=== PATIENT | female | born 1945 | race Caucasian/White ===

== ENCOUNTER 2021-02-28 13:05 | Outpatient (CLI) | payer MEDICARE, SELFPAY ==
--- NOTE | ~2021-02-28 | CT_ITS ---
EXAMINATION:CT chest high resolution wo co DATE: 02/28/2021 16:23 INDICATION: Other disorders of lung. TECHNIQUE: Computed tomography (CT) of the chest was performed without intravenous contrast. Automate d exposure control and iterative reconstruction technique were employed. The dose-length product (DLP ) was 326.85 mGy-cm. COMPARISON: None. FINDINGS: There is multifocal subsegmental atelectasis bilaterally. There is mosaic attenuation in th e lungs, likely small airways disease. There is a 3 mm nodule in left upper lobe, likely benign. Ther e is mild scarring at left lung apex. There is mild emphysema. There is a 3 mm nodule in right upper lobe, likely benign. There is a staple line in right lower lobe. There are mild peripheral subsegment al airspace and groundglass opacities with septal thickening in right lower lobe. There is a staple l ine in right middle lobe. There is mild peripheral septal thickening in the lungs with a lower lung p redominance. No bronchiectasis or honeycombing. No pleural effusion. Cardiomegaly is noted. There are coronary artery calcifications. No pericardial effusion. There are changes of cholecystectomy. The c entral pulmonary arteries are enlarged, consistent with pulmonary arterial hypertension. There is sev ere thoracic spondylosis. There is a sclerotic lesion in T3 vertebral body, likely a benign bone brook nd. There is a chronic burst fracture of T12 with mild central canal stenosis. There is mild chronic anterior wedging of L1 vertebral body. IMPRESSION: 1. Mild emphysema and mild chronic interstitial lung disease. 2. Cardiomegaly. Reviewed, dictated and finalized at location A. /OCEAN EXPORT CLERK
--- NOTE | 2021-02-28 13:55 | ECHO_ITS ---
Patient Info Name: Yoselin Thakur Age: 75 years : 1945 Gender: Female Ht: 63 in Wt: 266 lbs BSA: 2.39 m2 HR: 133 bpm BP: 160 / 90 mmHg Heart Rhythm: Atrial Fibrillation Exam Date: 02/28/2021 3:08 PM Exam Location: [facility] Pulmonary Patient Status: Outpatient Admit Date: 02/28/2021 Staff Ordering Physician: Winston Desir MD [employer] Teacher: Beena Adhikari RDCS Attending Provider: Winston Desir MD Referring Physician: Thang JIN; Exam Type: CA echo doppler color flow Study Info Indications - Pulmonary Hypertension, unspecified Complete two-dimensional, color flow and Doppler transthoracic echocardiogram is performed. Summary 1. Complete two-dimensional, color flow and Doppler transthoracic echocardiogram is performed. 2. Left ventricular chamber dimension is normal. 3. Left ventricular systolic function is normal, estimated at 55-60%. 4. The left ventricular diastolic function is abnormal. 5. E/e' 17 is elevated. 6. Atrial fibrillation. 7. Left atrial chamber dimension is severely enlarged. 8. Right atrial chamber dimension is moderately enlarged. 9. There is trace aortic valve regurgitation. 10. There is mild mitral valve regurgitation. 11. There is mild tricuspid valve regurgitation. 12. Moderate pulmonary hypertension, estimated pulmonary arterial systolic pressure is 53 mmHg. 13. There is trivial pericardial effusion. Left Ventricle E/e' 17 is elevated. Atrial fibrillation. Left ventricular chamber dimension is normal. Left ventricular systolic function is normal, estimated at 55-60%. The left ventricular diastolic function is abnormal. Right Ventricle Right ventricular chamber dimension is normal. Right ventricular systolic function is normal. Left Atria Left atrial chamber dimension is severely enlarged. Right Atria Right atrial chamber dimension is moderately enlarged. Aortic Valve The aortic valve is trileaflet. There is no aortic valve stenosis. There is trace aortic valve regurgitation. Pulmonic Valve There is no pulmonic regurgitation. Mitral Valve There is no mitral valve stenosis. There is mild mitral valve regurgitation. Tricuspid Valve There is mild tricuspid valve regurgitation. Moderate pulmonary hypertension, estimated pulmonary arterial systolic pressure is 53 mmHg. Pericardium/Pleural There is trivial pericardial effusion. Inferior Vena Cava Normal inferior vena cava with >50% collapse upon inspiration consistent with normal right atrial pressure, 5 mmHg. Aorta The aortic root size at the sinus of Valsalva is normal. Left Ventricular Outflow Tract Name Value Normal LVOT 2D LVOT Diameter 1.8 cm LVOT Doppler LVOT Peak Gradient 2 mmHg LVOT Mean Gradient 1 mmHg LVOT VTI 13 cm LVOT VTI/AV VTI Ratio 0.6 LVOT Stroke Volume 34 ml LVOT CO 3.7 l/min LVOT CI 1.6 l/min/m2 Pulmonic Valve
[2021-02-28 14:22] LABS: Rheumatoid Factor < 8.6 IU/ML (<12)
--- NOTE | 2021-03-01 12:31 | WPDSIXMINUTE ---
Six Minute Walk Procedure Procedure Performed Pulmonary Stress Test (6 min walk) Six Minute Walk This is a 6 minute walk test. The test was performed and interpreted in accordance with the 2014 ERS/ATS task force guidelines. the testing was performed on 2 L nasal cannula oxygen which is her home setting. Findings: The patient's resting oxygen saturation on 2 L NC measured by pulse oximetry was 97% and her heart rate was 141 bpm. Patient ambulated for 167 meters and oxygen saturation remained 95 to 98%. Heart rate at the end of the study was 138 bpm. There are no prior studies for comparison.
--- NOTE | 2021-03-01 12:33 | WPDPFTINT ---
PFT Procedure Performed PFT Procedure Performed Spirometry with Pre/Post Bronchodilator Plethysmography (Lung Vol) Diffusing Cap (DLCO) Flow Vol Loop PFT Interpretation This is a pulmonary function test with pre and post-bronchodilator spirometry, plethysmography and diffusing capacity. The test was performed and results interpreted in accordance with the 2019 and 2005 ATS/ERS Task Force guidelines respectively using the Global Lung Function Initiative-2012 reference equations. Patient demonstrated good effort and cooperation. Reproducibility criteria were met. The quality of the pre bronchodilator spirometry maneuver was Grade A and post bronchodilator spirometry maneuver was Grade A. Findings: Spirometry: The contour the expiratory flow tracing resembles that of a witch's hat . The contour the inspiratory flow tracing is normal. The pre bronchodilator FVC is 1.49 L, 57% predicted. The pre bronchodilator FEV1 is 1.14 L, 56% predicted. The FEV1: FVC ratio 76%. The post bronchodilator FVC is 1.47 L, representing a 2% decrease. The post bronchodilator FEV1 is 1.18 L, representing a 3% increase. The post bronchodilator FEV1: FVC ratio was 80%. Plethysmography: The total lung capacity is 3.07 L, 63% predicted. The functional residual capacity is 1.75 L, 62% predicted. The residual volume is 1.57 L, 71% predicted. Diffusing capacity: The absolute diffusion capacity is 8.6, 44% predicted. The diffusing capacity corrected for alveolar volume is 3.86, 90% predicted. Impression: There is a moderately severe restrictive ventilatory abnormality. The spirometry is normal without evidence of an obstructive abnormality. There is no significant improvement after inhaling a single dose of albuterol. The absolute diffusing capacity is moderately decreased and normalizes when corrected for alveolar volume. There are no prior studies for comparison
[2021-03-02 21:19] LABS: ANA Cascade Screen Negative (Negative)
[2021-03-02 22:41] LABS: Anti Cyclic Citrullinated Pept <16 Units (<20)
[2021-03-03 10:15] LABS: ANCA Screen Negative (Negative)
== END 2021-02-28 13:06 | disposition home or self-care (01) ==
PROVIDERS: PCP Family Medicine; Visit Provider Internal Medicine Pulmonary Disease
DX: I27.20 Pulmonary hypertension, unspecified (principal); J98.4 Other disorders of lung; R06.00 Dyspnea, unspecified; J40 Bronchitis, not specified as acute or chronic; Z72.0 Tobacco use; J84.9 Interstitial pulmonary disease, unspecified; R94.2 Abnormal results of pulmonary function studies; J43.9 Emphysema, unspecified; I08.3 Combined rheumatic disorders of mitral, aortic and tricuspid valves
CPT/HCPCS: 36415; 71250; 86021; 86038; 86200; 86331; 86430; 86606; 86609; 93306; 94060; 94618; 94726; 94729

== ENCOUNTER 2023-05-14 14:01 | Outpatient (CLI) | payer MEDICARE, SELFPAY ==
--- NOTE | ~2023-05-14 | CT_ITS ---
EXAMINATION: CT chest high resolution wo co DATE: 05/14/2023 14:35 INDICATION: Emphysema, chronic interstitial lung disease TECHNIQUE: Computed tomography (CT) of the chest was performed without intravenous contrast. Automate d exposure control and iterative reconstruction technique were employed. Exam dose: 353.62 mGy-cm to joan exam DLP. COMPARISON: 02/28/2021 CT chest high resolution scan FINDINGS: There is chronic discoid atelectasis or more likely scarring in the medial left apical area and particularly in the lingula. There is chronic discoid scarring at the anterior segment of the ri ght upper lobe and to a lesser extent both lower lobes. Stable 3 mm smaller nodule in each upper lobe. There is new or enlarging pulmonary mass lesion or new pulmonary infiltrate or consolidation is detected. Cardiomegaly. Interval pacemaker device since 02/28/2021. No thoracic aortic aneurysm. There is thoracic aortic atherosclerotic calcification. No hilar or medi astinal mass lesion or lymphadenopathy. Status post cholecystectomy. No bile duct dilatation. Normal morphology of the adrenal glands. Chronic mild burst fracture of T12. Lower cervical spine degenerative disc disease. Degenerative spur ring of the thoracic and lumbar spine. Probable large bone island of T3 vertebral body. Bilateral glenohumeral osteoarthritis.. IMPRESSION: Interval placement of cardiac pacemaker device; otherwise little interval change since 04/30/2020 Reviewed, dictated and finalized at [facility]. Reviewed, dictated and finalized at location B. K WATCHMAN IMPRESSION: Interval placement of cardiac pacemaker device; otherwise little i nterval change since 02/28/2021
[2023-05-14 15:00] VITALS: PULSE 82; O2SAT 94
[2023-05-14 15:03] VITALS: O2SAT 87
[2023-05-14 15:04] VITALS: O2SAT 88
[2023-05-14 15:05] VITALS: PULSE 93; O2SAT 92
[2023-05-14 15:15] VITALS: PULSE 80; O2SAT 94
--- NOTE | 2023-05-14 16:17 | PCRCNOTE ---
HOME O2 EVAL FAXED TO OFFICE STAFF, ROOM AIR RESTING, 2 L ACTIVITY
--- NOTE | 2023-05-15 12:05 | WPDPFTINT ---
PFT Procedure Performed PFT Procedure Performed Spirometry with Pre/Post Bronchodilator Plethysmography (Lung Vol) Diffusing Cap (DLCO) Flow Vol Loop PFT Interpretation This is a pulmonary function test with pre and post-bronchodilator spirometry, plethysmography and diffusing capacity. The test was performed and results interpreted in accordance with the 2019 and 2005 ATS/ERS Task Force guidelines respectively using the Global Lung Function Initiative-2012 reference equations. Patient demonstrated good effort and cooperation. Reproducibility criteria were met. The quality of the pre bronchodilator spirometry maneuver was Grade A and post bronchodilator spirometry maneuver was Grade A. Findings: Spirometry: The contour the inspiratory and expiratory flow tracing are normal. The pre bronchodilator FVC is 1.39 L, 54% predicted. The pre bronchodilator FEV1 is 1.10 L, 56% predicted. The pre bronchodilator FEV1: FVC ratio 79%. The post bronchodilator FVC is 1.36 L, representing a 2% decrease. The post bronchodilator FEV1 is 1.22 L, representing an 11% increase. The post bronchodilator FEV1: FVC ratio is 90%. Plethysmography: The total lung capacity is 3.48 L, 71% predicted. The functional residual capacity is 2.31 L, 82% predicted. The residual volume is 2.06 L, 91% predicted. Diffusing capacity: The diffusing capacity unadjusted for hemoglobin and carboxyhemoglobin is 11.3, 58% predicted. The diffusing capacity adjusted for alveolar volume is 3.78, 89% predicted. In comparison to previous pulmonary function testing on 02/28/2021 the post bronchodilator FVC is unchanged from 1.47 L to 1.36 L. The post bronchodilator FEV1 is unchanged from 1.18 L to 1.22 L. The total lung capacity is increased from 3.07 L to 3.48 L. The functional residual capacity is increased from 1.75 L to 2.31 L. The residual volume is increased from 1.57 L to 2.06 L. The diffusing capacity unadjusted for hemoglobin and carboxyhemoglobin is increased from 8.6 to 11.3. The diffusing capacity adjusted for alveolar volume is unchanged from 3.86 to 3.78. Impression: There is a moderately severe restrictive ventilatory abnormality. The spirometry is normal without evidence of an obstructive abnormality. There is no significant improvement after inhaling a single dose of albuterol. The diffusing capacity unadjusted for hemoglobin and carboxyhemoglobin is moderately decreased and normalizes when adjusted for alveolar volume. In comparison to prior pulmonary function testing on 02/28/2021 there has been a greater than anticipated time dependent increase in the total lung capacity, functional residual capacity, residual volume and diffusing capacity unadjusted for hemoglobin and carboxyhemoglobin. There has been no significant change in the FVC, FEV1 or diffusing capacity adjusted for alveolar volume. Clinical correlation is recommended.
== END 2023-05-14 14:02 | disposition home or self-care (01) ==
LOC: ANHIMG 14:08
PROVIDERS: PCP Family Medicine; Visit Provider Physician Assistant
DX: J98.4 Other disorders of lung (principal); Z95.0 Presence of cardiac pacemaker
CPT/HCPCS: 71250; 94060; 94618; 94726; 94729

== ENCOUNTER 2025-02-10 13:20 | Outpatient (CLI) | payer MEDICARE, SELFPAY ==
--- OUTSIDE RECORDS SUMMARY | 2021-03-14 10:30 | XMS_ITS | Continuity of Care Document ---
Author Organization [employer] [place] [place] [facility] Address [address] [facility] [address] [place] [id number] Phone Care Team Providers Care Rate Quoting Operator Name Role Phone Luca Townsend MD Unavailable Unavailable Allergies, Adverse Reactions, Alerts Substance Reaction Status Criticality ramelteon Active No Information azithromycin Active No Information ofloxacin Active No Information lansoprazole Active No Information erythromycin base Active No Informa tion Sulfa (Sulfonamide Antibiotics) Active No Information PENICILLIN Active No Information SITAGLIPTIN PHOSPHATE Active No Inf ormation tetracycline Active No Information CIPROFLOXACIN HCL Active No Informa tion ciprofloxacin Active No Information clindamycin Active No Information Medications Medication Instructions Dosage Effective Dates (start - stop) Status Comments Dulcolax (bisacodyl) 5 mg tablet,delayed release take 2 tablet by oral route every day 10 MG - Active cyclobenzaprine 10 mg tablet take 1 tablet by oral route 3 times every day 10 MG - Active elqsuzgjcm-hsrbvdc-wna feine 50 mg-325 mg-40 mg tablet take 1 tablet by oral route every 4 hours as needed not to exceed 6 tablets per 24hrs 1.00 tablet - Active multivitamin tablet take 1 tablet by oral route every day 1 tablet - Active aripiprazole 2 mg tablet take 1 tablet by oral route every day 2 MG - Active albuterol sulfate concentrate 2.5 mg/0.5 mL solution for nebulization inhale 0.5 milliliter by nebulization route 3 times every day 2.5 MG - Active aspirin 81 mg tablet,delayed release take 1 tablet by oral route every day 81 MG - Active fluticasone propionate 50 mcg/actuation nasal spray,suspension inhale 1 spray by intranasal route every day in each nostril 50 MCG - Active Eliquis 5 mg tablet take 1 tablet by oral route 2 times every day 5 MG - Active metformin 500 mg tablet take 2 tablet by oral route every day with morning and evening meals 1000 MG - Active lorazepam 0.5 mg tablet take 2 tablet by oral route 3 times every day as needed 1 MG - Active Pedia-Lax 400 mg (170 mg magnesium) chewable tablet take one tablet daily - Active omega-3 fatty acids-fish oil 300 mg-1,000 mg capsule take one tablet daily - Active ondansetron HCl 4 mg tablet take 2 tablet by oral route 2 times every day 8 MG - Active oxygen INHALATION MIST take one tablet daily - Active Tylenol Extra Strength 500 mg tablet take 2 tablet by oral route every 4 - 6 hours as needed not to exceed 8 tablets per 24hrs 1000 MG - Active Ambien 5 mg tablet take 1 tablet by oral route every day at bedtime 5 MG - Active Aldactone 50 mg tablet take 1 tablet by oral route every day 50 MG - Active diltiazem ER 360 mg capsule,24 hr,extended release take 1 capsule by oral route every day 360 MG - Active Caltrate with Vitamin D3 600 mg (1,500 mg)-800 unit tablet take 1 by oral route every day 1 - Active fexofenadine 180 mg tablet take 1 tablet by oral route every day 180 MG - Active Senokot-S 8.6 mg-50 mg tablet take 2 tablet by oral route every day 2.00 tablet - Active Singulair 10 mg tablet take 1 tablet by oral route every day in the evening 10 MG - Active Revatio 20 mg tablet take 1 tablet by oral route 3 times every day 20 MG - Active Protonix 40 mg tablet,delayed release take 1 tablet by oral route every day 40 MG - Active nortriptyline 50 mg capsule take 1 capsule by oral route 2 times every day 50 MG - Active Lasix 20 mg tablet take 1 tablet by oral route every day 20 MG - Active Crestor 10 mg tablet take 1 tablet by oral route every day 10 MG - Active clonidine HCl 0.2 mg tablet take 1 tablet by oral route 2 times every day 0.2 MG - Active atenolol 50 mg tablet take 1 tablet by oral route every day 50 MG - Active valsartan 320 mg tablet take 1 tablet by oral route every day 320 MG - Active ProAir RespiClick 90 mcg/actuation breath activated inhale 2 puff by inhalation route every 4 - 6 hours as needed 180 MCG - Active Advair Diskus 250 mcg-50 mcg/dose powder for inhalation inhale 1 puff by inhalation route 2 times every day in the morning and evening approximately 12 hours apart 1.00 puff - Active Procedures Procedure Date Post-op Follow-up Visit No Charge Optomap Fundus Photos 021 No Charge Refraction After Cataract Laser Surgery Eye Exam & Treatment No Charge Refraction No Charge Optomap Fundus Photos 020 Eye Exam & Treatment No Charge Refraction Eye Exam & Treatment Eye Exam & Treatment Office/outpatient Visit, Est No Charge Refraction Post-op Follow-up Visit Post-op Follow-up Visit Remove Cataract, Insert Lens Remove Cataract, Insert Lens,Comanaged N IOLMaster-Professional No Charge Refraction Post-op Follow-up Visit Post-op Follow-up Visit Remove Cataract, Post Op Care 6 Remove Cataract, Insert Lens,Comanaged S Limbal Relaxing Incision IOLMaster-Professional Corneal Topography IOLMaster-Technical No Charge Refraction No Charge AScan No Charge GDX Retina IOLMaster-Technical Eye Exam, New Patient Advance Directives Directive Yes / No Effective Date File Name No Information Encounters Encounter Description Practice Location Reason(s) For Visit Diagnoses Date Provider Providers Copied on Encounter [facility], [address], [place], [place], [address], [place] tel:[phone] SEC Pancho DUARTE Professional YAG Post Op (chief complaint) Surgery follow-up examination 1 Kristian Segovia. [address], [place], [place], [address], . tel:[phone] Referring Provider: Luca Servin, [address], [place], [address] . tel:[phone] [facility], [address], [place], [place], [address], [place] tel:[phone] [place] Professional Complete Exam (chief complaint) Type 2 diabetes mellitus without complication sPseudophaki a of both eyesDry eye syndrome of bilateral lacrimal glandsOther secondary cataract, right eyeOther secondary cataract, left eye 1 Kristian Segovia. [address], [place], [place], [address], [place]. tel:[phone] Referring Provider: Luca Servin, [address], [place], [address] . tel:[phone] [facility], [address], [place], [place], [address], [place] tel:[phone] [place] Complete Exam (chief complaint) Type 2 diabetes mellitus without complication sPseudophaki a of both eyesOther secondary cataract, bilateral 0 Kristian Segovia. [address] [place], [address], [place]. tel:[phone] Referring Provider: Luca Servin, [address], [place], [address] . tel:[phone] [facility], [address], [place], [place], [address], [place] tel:[phone] [place] Diabetic eye exam (chief complaint) Pseudophakia of both eyesOther secondary cataract, bilateralTyp e 2 diabetes mellitus without complication s 9 Kristian Segovia. [address], [place], [place], [address], [place]. tel:[phone] Referring Provider: Luca Servin, [address] [facility] [address], [place], [address] . tel:[phone] [facility], [address] [place] [address] [address], [place], [place], [address], [place] tel:[phone] SEC Pancho DUARTE Professional No Information Nov- 9 Kristian Segovia. [address] [facility], [place], [place], [address], [place]. tel:[phone] [facility], [address] [place] [address] [address], [place], [place], [address], [place] tel:[phone] SEC Pancho DUARTE Professional diabetic eye exam (chief complaint) Pseudophakia of both eyesType 2 diabetes mellitus without complication , without long-term current use of insulinOther secondary cataract, bilateral 8 Kristian Segovia. [address] [facility], [address], [place], [place], [address], [place]. tel:[phone] Referring Provider: Luca Servin, [address] [facility] [address], [place], [address] . tel:[phone] Office/outpa tient Visit, [facility], [address] [place] [address] [address], [place], [place], [address], [place] tel:[phone] SEC Pancho DUARTE Professional Follow up visit (chief complaint) Type 2 diabetes mellitus without complication , without long-term current use of insulinPseud ophakia of both eyesOther secondary cataract, bilateral Jul- 7 Kristian Segovia. [address] [facility], [address], [place], [place], [address], [place]. tel:[phone] Referring Provider: Luca Servin, [address] [facility] [address], [place], [address] . tel:[phone] [facility], [address] [place] [address] [address], [place], [place], [address], [place] tel:[phone] [place] 1 month follow up (chief complaint) No Information Mar- 6-201 6 Kristian Segovia. [address], [place], [place], [address], [place]. tel:[phone] Referring Provider: Luca Servin, [address], [place], [address] . tel:[phone] [facility], [address] [place] [address] [address], [place], [place], [address], [place] tel:[phone] [place] 1 wk PO (chief complaint) No Information 6 Kristian Segovia. [address], [address], [address], [place]. tel:[phone] Referring Provider: Luca Servin, [address], [place], [address] . tel:[phone] [facility], [address] [place] [address] [address], [place], [place], [address], [place] tel:[phone] [place] 1 day PO (chief complaint) No Information 6 Kristian Segovia. [address], [place], [place], [address], [place]. tel:[phone] Referring Provider: Luca Servin, [address], [place], [address] . tel:[phone] [facility], [address] [place] [address] [address], [place], [place], [address], [place] tel:[phone] [facility] No Information 0 6 Kristian Segovia. [address], [place], [place], [address], . tel:[phone] Referring Provider: Luca Servin, [address] [facility] [address], [place], [address] . tel:[phone] [facility], [address], [place], [place], [address], tel:[phone] [facility] No Information Nov-0 7-201 6 Kristian Segovia. [address] [facility], [address], [address], . tel:[phone] Referring Provider: Luca Servin, [address] [facility] [address], [place], [address] . tel:[phone] [facility], [address] [place] [address] [address], [place], [place], [address], tel:[phone] [place] Post-Op (chief complaint) No Information Oct-2 8-201 6 Kristian Segovia. [address] [facility], [facility] [place], [address], . tel:[phone] Referring Provider: Luca Servin, [address] [facility] [place], [address] . tel:[phone] [facility], [address], [place], [place], [address], tel:[phone] [place] Post-Op (chief complaint) No Information Oct-0 4-201 6 Kristian Segovia. [address] [facility], [facility] [place], [address], . tel:[phone] Referring Provider: Luca Servin, [address] [facility] [place], [address] . tel:[phone] [facility], [address], [place], [place], [address], [place] tel:[phone] SEC Pancho GERALD Professional Post-Op (chief complaint) No Information 6 Kristian Segovia. [address], [place], [place], [address], [place]. tel:[phone] Referring Provider: Luca Servin, [address], [place], [address] . tel:[phone] [facility], [address], [place], [place], [address], [place] tel:[phone] [facility] No Information 6 Kristian Segovia. [address], [address], [address], [place]. tel:[phone] Referring Provider: Luca Servin, [address], [place], [address] . tel:[phone] [facility], [address], [place], [place], [address], [place] tel:[phone] SEC Renetta Erazo No Information 6 Kristian Segovia. [address], [address], [address], [place]. tel:[phone] Referring Provider: Luca Servin, [address], [place], [address] . tel:[phone] [facility], [address], [place], [place], [address], [place] tel:[phone] SEC Renetta Erazo Repeat Measurements (chief complaint) No Information 6 Kristian Segovia. [address], [address], [address], [place]. tel:[phone] Referring Provider: Luca Servin [address], [place], [address] . tel:[phone] [facility] [facility], [address], [place], [place], [address], tel:[phone] [place] Professional Blurry/decrea sed vision (chief complaint) No Information 6 Kristian Segovia. [address], [place], [place], [address], [place]. tel:[phone] Referring Provider: Luca Servin, [address], [place], [address] . tel:[phone] [employer] [facility], [address], [place], [place], [address], tel:[phone] [place] No Information 6 Fly Vogel. [address], [place], [place], [address], . tel:[phone] Family History Family Member Type Diagnosis Age At Onset Problem (finding) Family history of Diabe russ mellitus Payers Payer name Insurance type Covered libertarian ID Authoriza tion(s) No Information Social History Type Description Quantity Date Captured Comments Alcohol Use Details 1 drink rarely Caffeine Use Details and soda 2 cups per day Tobacco Use Status Current non-smoker Smoking Status Never smoker Non-Smoking Tobacco Use Details : No Details Available : No Details Available Sex Female Gender Identity Female Chief Complaint And Reason For Visit From encounter dated '03/14/2021 15:30'. YAG Post Op (chief complaint). Description: The 75 year old female presents for evaluation of YAG Post Op in the right eye 02/16/21. Pt states vision is good. Pt is using Refresh BID OU. Pt denies pain or discomfort. Pt is NIDDM II with A1C 7.2 and BS 118, followed by PCP. Reason For Referral Reason For Referral No Information Plan Of Treatment Date Type Action Status Patient Education Learning About YAG Lase r Capsulotomy completed Patient Education Learning About YAG Lase r Capsulotomy completed History Of Present Illness Encounter Date Complaint History Of Prese nt Illness YAG Post Op The 75 year old female presents for evaluation of YAG Post Op in the right eye 02/16/21. Pt states vision is good. Pt is using Refresh BID OU. Pt denies pain or discomfort. Pt is NIDDM II with A1C 7.2 and BS 118, followed by PCP. Complete Exam The 75 year old female presents for evaluation of Complete Exam in the right eye and left eye. Hx of PCIOL w/LRI OD, PCIOL OS, PCO OU, and K guttata OD. Pt reports decline in vision has become more apparent from last appt. Pt is struggling to see TV captions/images, difficult to see small print or read the backs of medicine bottles, pt does avoid driving at night, and is worried of missing a street sign before making a turn. Pt is NIDDM II, with an A1C OF 7.3 and BS 129, followed by PCP. Pt is not using any gtts at this time. Complete Exam The 74 year old female presents for evaluation of Complete Exam in the right eye and left eye. Hx of PCIOL w/LRI OD, PCIOL OS, PCO OU, and K guttata OD. Pt is NIDDM II x 12 yrs, followed by PCP, pt reports BS was 116 last week and A1C was 6.5 in September. Pt reports she is having trouble reading small print up close, OU, even when wearing gls, x 6 mos. Pt reports she doesn't use any gtts, OU. Diabetic eye exam The 73 year ol d female presents for evaluation of Diabetic eye exam in the right eye and left eye. Hx of PCIOL OU w/LRI OD. Patient is a Type 2 diab x 10 years, NOT on Insulin, BS checked a couple of days ago @ 105, a1c 6.5, and PCP treats her diab. Patient states she has some difficulty driving at night due to glare. diabetic eye exam The 72 year ol d female presents for a complete Type II diabetic eye exam ou. Patient is pseudo ou. Last A1C was 5.9 a month ago. Patient denies any changes in vision ou. Follow up visit The 71 year old female presents for a 4 month IOL ou check. Patient wears OTC reading glasses. Patient denies any changes in vision ou. Patient is a Type II diabetic. Patient is taking Prednisone for Bronchitis. 1 month follow up The 70 year ol d female presents for 1 month follow up in the left eye. Hx Phaco w/PCIOL Os & PCIOL w/LRI OD, Guttata OD, DMII NID. PT states her vision is doing fine but she has noticed that her left eye is watery and achy last night and today. Pt states she is using POLY TID OS. 1 wk PO The 70 year old female presents for 1 wk PO in the left eye. Pt using Poly, PF1%, and Diclo TID. Pt states VA is good, no pain or discomfort. 1 day PO The 70 year old female presents for 1 day PO in the left eye. All medications reviewed and PO instructions understood. Pt used all Sx gtts this AM. Pt states VA has improved and had a slight GIL last night, Pt took Tylenol to help GIL. Post-Op The 70 year old female presents for a 1 month post op CE OD with LRI. Patient states OD is doing good. Patient is using Poly only OD. Patient wishes to proceed with CE OS because of decreased vision and notices a difference between eyes. Post-Op The 70 year old female presents for a 1 week p/o PCIOL c LRI OD. Pt states v/a OD has improved. Pt denies any pain or discomfort. Pt is using Poly QID, Pred QID, and Diclo TID OD, gtts burn. Post-Op The 70 year old female presents for a 1 day post op CE with LRI OD. Patient is using Pred, Poly and Diclofenac as directed. Patient denies any pain or discomfort. Repeat Measurements The 70 year old female presents for Repeat Measurements. IOLM, A-Scan, and Pentscam will be completed today. Blurry/decreased vision The 70 y ear old female presents for Blurry/decreased vision OU over the past 6 months in the distance, avoids driving at night, trouble reading roadsigns, small print, and is bothered by glare from bright lights. Pt denies any pain or discomfort. Pt does not use any gtts. Pt is NIDDII. A1C 6.4, checked BS last week 85. Functional Status Date Functional Assessmen t No Information Instructions Date Instruction Additional Infor sharla Impression/Plan Impression/Plan Impression/Plan Impression/Plan Educational material given Relat ed to Pseudophakia of both eyes Impression/Plan Impression/Plan - Ty pe II Diabetes:- No background diabetic retinopathy and no signs of neovascularization noted.- Ocular and systemic benefits of good blood sugar control discussed with patient.- Letter sent to Maurilio Torrez MD regarding today's exam findings.Posterior Capsular Opacification OU:- Mild PCO OU; has not reached visual axis.- PCO does not appear to be affecting the vision.- Patient will monitor the vision and call with changes.- Recommend patient return in 1 year or sooner with problems. Type 2 diabetes sharon itus without complication, without long-term current use of insulin - Letter sent to PCP/Specialist Related to Type 2 diabetes mellitus without complication, without long-term current use of insulin Type 2 diabetes sharon itus without complication, without long-term current use of insulin - Educational materials provided Related to Type 2 diabetes mellitus without complication, without long-term current use of insulin Type 2 diabetes sharon itus without complication, without long-term current use of insulin - Rec good blood sugar control Related to Type 2 diabetes mellitus without complication, without long-term current use of insulin Follow up - Return t o clinic in 1 year for complete exam Impression/Plan - 1 month s/p Phaco IOL OS. Patient has healed well. All post operative medications are finished. Vision is good and IOP is stable. Recommend the use of AFT as needed for dryness and irritation. Sample of Refresh Advanced given today. Recommend the use of OTC reading glasses for near vision. Patient will return in 4 months or sooner with problems. Follow up - Return t o clinic in 4 months for DFE Follow up - Return t o clinic as scheduled Impression/Plan - On e week PO s/p Phaco with IOL OS. IOL in good position; healing well. Patient advised they no longer need to wear the shield over the eye at bedtime. Medication instillation and post op instructions reviewed. Patient will return in 3 weeks or sooner with problems. Impression/Plan - On e Day PO s/p Phaco with IOL OS in good position. Patient healing well. Medication instillation, shield use and restrictions reviewed with patient. Return to clinic as scheduled or sooner with problems. Follow up - Return t o clinic as scheduled Impression/Plan - 1 month s/p Phaco IOL OD. Patient has healed well. All post operative medications are finished. Vision is good and IOP is stable. Patient elects to proceed with OS CE as scheduled. Follow up - Proceed with OS CE as scheduled Impression/Plan - On e week PO s/p PCIOL with LRI OD. IOL in good position; healing well. Patient advised they no longer need to wear the shield over the eye at bedtime. Advised patient to wait 2 weeks before wearing mascara. Medication instillation and post op instructions reviewed. Patient will return in 3 weeks or sooner with problems. Follow up - Return t o clinic as scheduled Impression/Plan - On e Day Post Op s/p Phaco with IOL+LRI OD in good position. Patient healing well. Medication instillation, shield use and restrictions reviewed with patient. Return to clinic as scheduled or sooner with problems. Follow up - Return t o clinic as scheduled Impression/Plan - Ca taract surgery measurements reviewed with patient. Lifestyle lens options discussed. After reviewing the measurements the right eye would benefit from the LRI, and the left would not. Patient elects to schedule CE OD first with the standard IOL+LRI, followed by OS CE with the standard IOL. Follow up - Schedule CE OD first with the standard IOL+LRI, followed by OS CE with the standard IOL. Follow up - Schedule IOL Master, ASCAN and Pentacam in [facility] Impression/Plan - Ty pe II Diabetes: No background diabetic retinopathy and no signs of neovascularization noted. Ocular and systemic benefits of good blood sugar control discussed with patient. Letter sent to Maurilio Torrez MD regarding today's exam findings.Cataract Diagnosis discussed in detail with patient. Discussed all risks, benefits and alternatives pertaining to cataract surgery. The procedure and recovery from cataract extraction were discussed. Recommend phacoemulsification with intraocular lens implant. Lifestyle lens options discussed. Toric IOL vs. LRI discussed with patient. The possibility that patient may still need to wear glasses to correct residual astigmatism and/or for reading vision following surgery reviewed and understood by patient. Patient elects to proceed with CE OD+ possible LRI with the standard IOL set for distance, followed by CE OS with the standard IOL+ possible LRI set for distance.*Patient will schedule repeat measurements in [facility] for IOL Master, ASCAN and Pentacam. Assessments Type Assessment Date assessment Surgery follow-up examination No Patient Care Teams Name Effective Dates (start - stop) Status Members No Information
[2025-02-10 13:05] VITALS: PULSE 60; O2SAT 95
[2025-02-10 13:10] VITALS: PULSE 80; O2SAT 86
[2025-02-10 13:15] VITALS: PULSE 84; O2SAT 88
[2025-02-10 13:20] VITALS: PULSE 88; O2SAT 91
[2025-02-10 13:35] VITALS: PULSE 66; O2SAT 94
--- NOTE | 2025-02-10 14:39 | HOMEO2EVAL ---
Evaluation was performed at [facility] Home Oxygen Evaluation RC: Home Oxygen (O2) Evaluation Start: 02/10/25 14:36 Freq: Status: Active Protocol: RPE Activity Type Activity Date Activity User E-sign Co-sign Detail Recorded Client Recorded Date Recorded By Document 02/10/25 13:05 DJO [email or web address] 02/10/25 14:39 DJO Document 02/10/25 13:10 DJO [email or web address] 02/10/25 14:39 DJO Document 02/10/25 13:15 DJO [email or web address] 02/10/25 14:39 DJO Document 02/10/25 13:20 DJO [email or web address] 02/10/25 14:39 DJO Document 02/10/25 13:35 DJO [email or web address] 02/10/25 14:39 DJO 02/10/25 02/10/25 02/10/25 13:05 13:10 13:15 Home O2 Evaluation [Oxygen] -Test Phase Resting Exercise Exercise -Oxygen Delivery Room Air Room Air Nasal Cannula -Oxygen Flow Rate (L/min) 1 [Pulse Oximetry] -Pulse Oximetry (90-100 %) 95 86 L 88 L [Pulse Rate] -Pulse Rate (60-100 beats/min) 60 80 84 [Evaluation] -Activity Tolerance [Exercise] -Ambulation Distance (feet) -Ambulation Distance (meters) [Charges] -Evaluation Charges O2 Evaluation by Pulmonary 02/10/25 02/10/25 13:20 13:35 Home O2 Evaluation [Oxygen] -Test Phase Exercise Resting -Oxygen Delivery Nasal Cannula Room Air -Oxygen Flow Rate (L/min) 2 [Pulse Oximetry] -Pulse Oximetry (90-100 %) 91 94 [Pulse Rate] -Pulse Rate (60-100 beats/min) 88 66 [Evaluation] -Activity Tolerance Poor [Exercise] -Ambulation Distance (feet) 200 -Ambulation Distance (meters) 60.95 [Charges] -Evaluation Charges
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
--- OUTSIDE RECORDS SUMMARY | 2025-02-10 14:47 | XMS_ITS | Encounter Summary ---
Author Organization [facility] Healthcare Address [address] [place] [address] Care Team Providers Care Stock Fitter Name Role Phone Maurilio Torrez MD Primary Care Provider [phone] Renny Gabriel DO Unavailable [phone] Leticia Thorpe NURSERY RN Unavailable [phone] Richa Desir NURSERY RN Unavailable [phone] Nunu Langston NURSERY RN Unavailable [phone] Reason for Visit * Reason Onset Date Comments Symptom Based Call 10/14/2024 Encounter Details Date Type Department Care Team (Late Contact Info) Description 10/14/2024 Telephone [facility] [address] [address] Maurilio Torrez MD [address] [place] [address] Symptom Based Call Social History Tobacco Use Types Packs/Day Years [...] materials from doctor or pharmacy Sometimes 02/07/2024 [facility] Utilities Answer Date Recorded In the past 12 months has th e [employer], [employer], oil, or water [employer] threatened to shut off services in your [...] often do you attend chur ch or baptism services? Never 12/17/2023 Do you belong to any clubs o r organizations such as orthodoxy groups, unions, fraternal or athletic groups, or [...] points, staff should administer the PHQ-9) 0 09/03/2024 [facility] - Occupational Stress Questionnaire Answer Date [...] place to sleep or slept in a detention (including now)? No 05/16/2023 PHQ-9 Answer Date [...] any time in the past 12 m onths, were you homeless or living in a detention (including now)? No 12/17/2023 Personal Safety Answer Date Recorded Have you ever been in or are you currently in a harmful physical or emotional relationship or is someone making you feel afraid or unsafe? 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 Thanks * Telephone Encounter - Emi Talley - 10/14/2024 3:13 PM CDT Symptom Based Call Chief Complaint(s): urine odor and leakage Duration: about 5 days What type of symptom(s) is the patient experiencing? Non-Emergent. Is this a new or reoccurring symptom(s)? New What have you tried to help your symptom(s)? Incontinence pads Why was appointment not scheduled? Patient seeking care without an appointment; appointment was offered by [facility]. Additional Comments: Renea called requesting urinalysis order to be placed for patient. PERSONAL LINES ACCOUNT MANAGER did attempt to schedule but Renea states due to patient being homebound it is difficult for patient to get out for an appointment. Renea states patient would prefer for a urinalysis order to be placed andAmanda can drop off urine at lab in office but is agreeable to be seen for a video visit if she hasto. Renea states patient has been complaining of urine odor and increased urine leakage. Renea states patient denies any pain or burning at this time, no blood in urine or any other urinary changes. Please advise with Renea by phone. Does message need to be routed? Yes-Action Needed documented in this encounter Plan of Treatment Not on file documented as of this encounter Visit Diagnoses Not on filedocumented in this encounter Care Teams Stock Fitter Relationship Specialty Start Date End Date Maurilio Torrez MD [address] [place] [address] PCP - General 07/13/16 Renny Gabriel DO [address] [facility] [address] [place] [address] Consulting Physician Cardiovascular Disease 02/22/19 Leticia Thorpe NP [address] [place] [address] Nurse Practitioner Family Medicine 09/04/24 Richa Desir NP [address] [facility] [address] [facility] [address] [place] [address] Nurse Practitioner Hospice and Palliative Medicine 09/08/24 Nunu Langston NP [address] [facility] [address] [place] [address] Nurse Practitioner Hospice and Palliative Medicine 09/08/24 documented as of this encounter
--- OUTSIDE RECORDS SUMMARY | 2025-02-10 14:47 | XMS_ITS | Clinical Summary ---
Author Organization [facility] Address [address] [place] [address] Phone Care Team Providers Care Sand Caster Apprentice Name Role Phone Maurilio Torrez MD Primary Care Provider [phone] Medications No known medications Social History Tobacco Use Types Packs/Day Years Used Date Smoking Tobacco: Never Tobacco Cessation:Counseling Given: Not Answered Alcohol Use Standard Drinks/Week Comments Not Currently 0 (1 standard drink = 0.6 oz pur e alcohol) Comments No Sex and Gender Information Value Date Recorded Sex Assigned at Not on file Legal Sex Female 1:39 PM MORTGAGE LOAN COUNSELOR Gender Identity Not on file Sexual Orientation Not on file Last Filed Vital Signs Vital Sign Reading Time Taken Comments Blood Pressure 109/60 06/05/2023 4:07 PM MORTGAGE LOAN COUNSELOR Pulse 59 06/05/2023 4:07 PM MORTGAGE LOAN COUNSELOR Temperature 36.2 C (97.2 F) 06/05/2023 2:12 PM MORTGAGE LOAN COUNSELOR Respiratory Rate 18 06/05/2023 4:07 PM MORTGAGE LOAN COUNSELOR Oxygen Saturation 99% 06/05/2023 4:07 PM MORTGAGE LOAN COUNSELOR Inhaled Oxygen Concentration - - Weight 112 kg (247 lb) 06/05/2023 2:12 PM MORTGAGE LOAN COUNSELOR Height 160 cm (5' 3) 06/05/2023 2:12 PM MORTGAGE LOAN COUNSELOR Body Mass Index 43.75 06/05/2023 2:12 PM MORTGAGE LOAN COUNSELOR Plan of Treatment Health Maintenance Due Date Last Done Comments Hepatitis C Virus (HCV) Screening 1945 TdaP Immunization 1945 Zoster Immunization (1 of 2) 1996 DEXA Bone Density 02/09/2021 02/09/2019, 11/11/2014 Respiratory Syncytial Virus (RSV) Immunization (Adult) (1 - 1-dose 75+ series) 2021 Medicare Initial AWV G0438 04/15/2024 Influenza Immunization (#1) 12/14/202401/14, 12/21/2021, 03/02/2021, Additional history exists SARS-COV-2 Immunization ( season) 2024 08/29/2021, 05/12/2021, 03/12/2021, Additional history exists Pneumococcal Immunization (50+ years) Completed 03/13/2016, 09/14/2011 Hepatitis B Immunization Aged Out No longer eligible based on patient's age to complete this topic Human Papillomavirus (HPV) Immunization Aged Out No longer eligible based on patient's age to complete this topic Meningococcal Immunization (ACWY) Aged Out No longer eligible based on patient's age to complete this topic Rotavirus Immunization Aged Out No lo nger eligible based on patient's age to complete this topic Insurance MEDICARE C [facility] [place] [id number] Care Teams Sand Caster Apprentice Relationship Specialty Start Date End Date Maurilio Torrez MD [address] [place] [address] PCP - General Internal Medicine 06/05/23
--- OUTSIDE RECORDS SUMMARY | 2025-02-10 14:47 | XMS_ITS | Clinical Summary ---
Author Organization [facility] Facility Address [address] [place] [address] Care Team Providers Care Dependency Program Director Name Role Phone Maurilio Torrez Primary Care Provider [phone] Social History Tobacco Use Types Packs/Day Years Used Date Smoking Tobacco: Never Assessed Comments Unknown Sex and Gender Information Value Date Recorded Sex Assigned at Not on file Legal Sex Female 6:10 PM EDT Gender Identity Not on file Sexual Orientation Not on file Plan of Treatment Health Maintenance Due Date Last Done Comments Diabetes: Ophthalmology Exam 08/14/2024 Diabetes: Pedal Pulse Checked 08/14/2024 Diabetes: Sensory Foot Exam 08/14/2024 Diabetes: Visual Foot Exam 08/14/2024 Diabetes: Hemoglobin A1C 12/04/2024 09/03/2024, 0309/2024 Influenza Vaccine (#1) 2024 4, 12/23/2018, 12/30/2017, Additional history exists Pneumococcal Vaccine: 50+ Years Completed 03/13/2016, 09/14/2011 Pneumococcal Vaccine: Peds (0 to 5 Years) and At-Risk Patients (6 to 49 Years) Discontinued 03/13/2016, 09/14/2011 Colorectal Cancer Screening: Colonoscopy Discontinued 08/31/2020 Hepatitis B Vaccine Aged Out No longe r eligible based on patient's age to complete this topic Insurance [id number] [place] [address] [facility] Medicare Care Teams Dependency Program Director Relationship Specialty Start Date End Date Maurilio Torrez [address] [place] [address] PCP - General Internal Medicine 08/14/24
--- OUTSIDE RECORDS SUMMARY | 2025-02-10 14:47 | XMS_ITS | Clinical Summary ---
Author Organization [facility] Address [address] [place] [address] Care Team Providers Care Retail Merchandiser Technician Name Role Phone Maurilio Torrez MD Primary Care Provider [phone] Renny Gabriel DO Unavailable [phone] Leticia Thorpe SPECIAL EDUCATION ASSOCIATE Unavailable [phone] Richa Desir SPECIAL EDUCATION ASSOCIATE Unavailable [phone] Nunu Langston SPECIAL EDUCATION ASSOCIATE Unavailable [phone] Allergies Active Allergy Reactions Criticality Noted Date Comments Azithromycin Nausea & Vomiting,Nausea And Vomiting Low 04/23/2018 Ciprofloxacin Rash Medium Clindamycin Other (See comments) Low 01/30/2024 intolerance Erythromycin Hives Medium Lansoprazole Rash Medium Ofloxacin Rash Medium Other Rash Medium 12/21/2021 Penicillin Anaphylaxis High Ramelteon Nausea only,Stomach upset Low 10/20/2019 And stomach cramps Sitagliptin Nausea only Low Sulfa (Sulfonamide Antibiotics) Rash Medium Tetracycline Rash Medium Medications albuterol HFA (PROAIR HFA) 90 mcg/actuation inhalerIndicati ons:Bronchospas m Prevention,Intermediate Card Tender gil Obstructive Pulmonary Disease Inhale 2 puffs every 4 (four) hours as needed for wheezing or shortness of breath. 8.5 g 6 08/25/19 18 Active aspirin 81 mg tabletIndicatio ns:prevention of thrombosis Take 1 tablet (81 mg total) by mouth every other day Active nortriptyline (PAMELOR) 50 mg capsuleIndicati ons:depression Take 2 capsules (100 mg total) by mouth nightly Active omega-3 fatty acids-fish oil 300-1,000 mg capsuleIndicati ons:hypertrigly ceridemia Take 2 capsules (2 g total) by mouth 2 (two) times a day Active acetaminophen (TYLENOL) 500 mg tabletIndicatio ns:Pain Take 2 tablets (1,000 mg total) by mouth every 6 (six) hours as needed for pain Active oxygenIndicatio ns:Dyspnea Inhale 2 L/min continuously. Indications: trouble breathing Active multivitamin tabletIndicatio ns:Vitamin Deficiency Prevention Take 1 tablet by mouth daily Active calcium carbonate-vitam in D3 (Caltrate with Vitamin D3) 1,500 mg (600mg elemental) -800 unit per tabletIndicatio ns:Vitamin D Deficiency Take 1 tablet by mouth daily Active nebulizer accessories kit Use as directed with nebulizer Dx: pulmonary hypertension 1 kit 3 10/31/19 22 Active dicyclomine (BENTYL) 10 mg capsuleIndicati ons:Irritable Bowel Syndrome TAKE ONE (1) CAPSULE (10 MG TOTAL) BY MOUTH FOUR (4) TIMES a DAY BEFORE MEALS AND NIGHTLY 360 capsule 1 06/24/19 24 Active lubiprostone (AMITIZA) 8 mcg capsuleIndicati ons:chronic idiopathic constipation Take 1 pill twice daily with food or 2 pills once daily with food for constipation management. 180 capsule 3 02/28/20 24 Active senna-docusate (PERICOLACE) 8.6-50 mg Take 1-2 tablets by mouth daily as needed for constipation Active simethicone (GAS-X) 125 mg capsule Take 1 capsule (125 mg total) by mouth every 6 (six) hours as needed for flatulence Active famotidine (PEPCID) 40 mg tabletIndicatio ns:Heartburn Take 1 tablet (40 mg total) by mouth daily 30 tablet 11 03/06/20 24 2024 Active TRUEplus Pen Needle 31 gauge x 08/28 needle USE TO INJECT ONCE NIGHTLY 100 each 11 03/31/20 24 Active rimegepant (Nurtec ODT) tablet,disinteg rating Take 1 tablet (75mg) no more than once daily for headache 15 tablet 05/18/19 25 Active Additional Information Patient not taking.Reported on 11/05/2024 furosemide (LASIX) 20 mg tablet TAKE TWO (2) TABLETS BY MOUTH TWICE DAILY 360 tablet 2 06/27/19 25 Active SUMAtriptan (IMITREX) 50 mg tabletIndicatio ns:Migraine Take 1 tablet (50 mg total) by mouth once as needed for migraine May repeat after 2 hours. 27 tablet 4 07/02/19 25 2025 Active PARoxetine (PAXIL) 30 mg tablet 04/16/[address] (PROTONIX) 40 mg EC tabletIndicatio ns:Stress Ulcer Prophylaxis TAKE ONE (1) TABLET BY MOUTH TWO (2) TIMES a DAY BEFORE BREAKFAST AND DINNER 180 tablet 1 08/11/19 25 Active cetirizine (ZyrTEC) 10 mg tablet Take 0.5 tablets (5 mg total) by mouth daily as needed for allergies 90 tablet 1 08/14/19 25 2025 Active montelukast (SINGULAIR) 10 mg tabletIndicatio ns:Maintenance Therapy for Asthma TAKE ONE (1) TABLET (10 MG TOTAL) BY MOUTH NIGHTLY 100 tablet 1 08/18/19 25 Active albuterol 2.5 mg /3 mL (0.083 %) nebulizer solution USE 1 VIAL (2.5 MG TOTAL) BY NEBULIZATION FOUR (4) (FOUR) TIMES a DAY NEEDED FOR WHEEZING 360 mL 11 08/26/19 25 Active insulin glargine (LANTUS) 100 unit/mL (3 mL) pen for injectionIndica tions:type 2 diabetes mellitus Inject 16 Units under the skin nightly 15 mL 09/05/19 25 Active donepeziL (ARICEPT) 10 mg tabletIndicatio ns:Mild early onset Alzheimer's dementia without behavioral disturbance, psychotic disturbance, mood disturbance, or anxiety (HCC) TAKE ONE TABLET BY MOUTH ONCE a DAY 30 tablet 5 09/24/19 25 Active ondansetron (ZOFRAN) 4 mg tabletIndicatio ns:nausea TAKE 1 TABLET (4 MG TOTAL) BY MOUTH EVERY 8 (EIGHT) HOURS NEEDED FOR NAUSEA OR VOMITING 20 tablet 1 10/01/19 25 Active memantine (NAMENDA) 5 mg tabletIndicatio ns:Moderate to Severe Alzheimer's Type Dementia Take 1 tablet (5 mg total) by mouth 2 (two) times a day 60 tablet 11 10/14/19 25 2025 Active Eliquis 5 mg tablet TAKE ONE (1) TABLET BY MOUTH TWICE DAILY 60 tablet 5 10/24/19 25 Active rosuvastatin (CRESTOR) 10 mg tabletIndicatio ns:hyperlipidem ia TAKE ONE (1) TABLET BY MOUTH DAILY 90 tablet 3 10/24/19 25 Active acetaminophen-c odeine (TYLENOL with CODEINE #3) 300-30 mg per tablet Take 1 tablet by mouth every 6 (six) hours as needed for pain 20 tablet 11/14/19 25 Active spironolactone (ALDACTONE) 50 mg tablet TAKE ONE (1) TABLET (50 MG TOTAL) BY MOUTH DAILY 90 tablet 1 11/21/19 25 Active atenoloL (TENORMIN) 100 mg tablet TAKE ONE (1) TABLET BY MOUTH TWICE DAILY 180 tablet 3 11/28/19 25 Active sildenafiL, pulm.hypertensi on, (REVATIO) 20 mg tabletIndicatio ns:Pulmonary Arterial Hypertension TAKE ONE (1) TABLET (20 MG TOTAL) BY MOUTH THREE (3) (THREE) TIMES a DAY 270 tablet 3 12/03/19 25 Active cloNIDine (CATAPRES) 0.2 mg tabletIndicatio ns:hypertension TAKE ONE (1) TABLET (0.2 MG TOTAL) BY MOUTH THREE (3) (THREE) TIMES a DAY 270 tablet 1 12/16/19 25 Active butalbital-acet aminophen-caffe ine (ESGIC) 50-325-40 mg per tabletIndicatio ns:Migraine without aura and without status migrainosus, not intractable TAKE 1 TABLET BY MOUTH EVERY SIX (6) (SIX) HOURS NEEDED FOR HEADACHES 30 tablet 1 01/29/20 25 Active butalbital-acet aminophen-caffe ine (ESGIC) 50-325-40 mg per tabletIndicatio ns:Migraine Take 1 tablet by mouth every 6 (six) hours as needed for headaches 30 tablet 1 11/06/19 25 2024 Discontinued Active Problems Problem Noted Date Diagnosed Date Iron deficiency anemia, unspecified 09/11/2024 Assessment & Plan (11/05/2024 3:58 PM CDT): Improved energy and reduced shakiness post iron infusions. - Repeat iron studies in one month. Bronchitis 08/27/2024 Assessment & Plan (08/27/2024 2:17 PM CDT): Course of prednisone for expiratory wheezing and will follow response. Montior respnose. COmpelted course of antibiotic. Chronic kidney disease (CKD), stage IV (severe) 08/27/2024 Assessment & Plan (08/27/2024 2:18 PM CDT): Stable on blood pressure and will follow response. NO change and will montior ersopnse. Continue son spironolacotne and clonidine with fursomedie for fluid balance. Hypertension associated with diabetes 07/02/2024 Assessment & Plan (08/13/2024 2:36 PM CDT): Stable on current regimen. No changes. Assessment & Plan (08/07/2024 3:42 PM CDT): Blood pressure is well controlled, no changes made today. Continue present management. Assessment & Plan (07/02/2024 8:43 AM CDT): Stabl cait agents including spironolaconte and clonidine. Tinnitus of both ears 07/02/2024 Assessment & Plan (07/02/2024 8:44 AM CDT): No focal findings on exam. EAC clear. TM WNL. Type 2 diabetes mellitus wit h stage 4 chronic kidney disease, without long-term current use of insulin 07/02/2024 Assessment & Plan (08/27/2024 2:16 PM CDT): Revuiwed blood sguar control and target response. Reivewed aggressive bp and blood sugar control with ckd. No s/s of fluid overload. Assessment & Plan (08/13/2024 2:36 PM CDT): Renal function low but stable. Recommend establishing care with Nephrology. Referral placed. Blood glucose today 224. Continue monitoring. Assessment & Plan (08/07/2024 3:41 PM CDT): Stop metformin Increase lantus to 14 units nightly, go up to 16 if am fasting blood sugars are consistently >150. Continue checking blood sugar daily. Assessment & Plan (07/02/2024 8:44 AM CDT): Reivewed fluid balance and reivewed bp and glycemic control. Depression, recurrent 07/02/2024 Assessment & Plan (07/02/2024 8:44 AM CDT): MNood is stable. Strong familyl support. Dysuria 06/11/2024 Assessment & Plan (06/11/2024 10:29 AM MANAGEMENT LIAISON): POCT UA done. Will do short course of Pyridium due to kidney disease advised to use sparingly PRN Office Visit on 06/11/2024 Component Date Value Ref Range Status Color, Urine, POC 06/11/2024 Yellow Final Clarity, ur, POC 06/11/2024 Clear Clear Final Glucose, ur, POC 06/11/2024 Negative Negative MG/DL Final Bilirubin, ur, POC 06/11/2024 Negative Negative, Small, Moderate, Large Final Ketones, ur, POC 06/11/2024 Negative Negative Final Specific Hunter, POC 06/11/2024 1.025 1.003 - 1.030 Final Blood, ur, POC 06/11/2024 Negative Negative Final pH, ur, POC 06/11/2024 6.0 5.0 - 8.0 Final Protein, ur, POC 06/11/2024 Negative Negative Final Urobilinogen, urine, POC 06/11/2024 0.2 0.2 - 1.0 mg/dL Final Nitrite, ur, POC 06/11/2024 Negative Negative Final Leukocytes, ur, POC 06/11/2024 Trace (A) Negative Final Lot Number 06/11/2024 [id number] Final Acute cystitis without hematuria 06/11/2024 Assessment & Plan (06/11/2024 10:55 AM MANAGEMENT LIAISON): Macrobid and pyridium short course given. Will continue to monitor. Closed displaced fracture of fifth metatarsal bone of right foot 12/19/2023 Assessment & Plan (12/19/2023 5:37 PM CDT): Weightbearing as tolerated on right lower extremity. Ortho boot in place. She is scheduled for follow-up with Podiatry in 2 weeks. Frequent falls 12/11/2023 Assessment & Plan (08/13/2024 2:36 PM CDT): No recent falls. Safety reviewed. Assessment & Plan (12/19/2023 5:37 PM CDT): Increased falls as a result of orthostatic hypotension per hospital records. Patient is trying to increase p.o. fluid intake. She denies any falls since she has been home, no dizziness or lightheadedness. Will have home health and continue with PT. Acute non-recurrent maxillary sinusitis 11/28/19 24 Assessment & Plan (11/28/2023 4:14 PM CDT): Reviewed workup from ED, patient continues to feel weak. She is also experiencing increased nasal drainage/congestion as well as sinus pressure. Lungs clear on exam. Instructed to avoid use of Flonase given recent nosebleed. No bleeding in the last few days, nosebleed resolved. Will treat with course of antibiotic, doxycycline. Patient with tetracycline listed as an allergy, states that this was when she was a teenager. She has since tolerated doxycycline. Follow up if no improvement. Irritable bowel syndrome wit h both constipation and diarrhea 11/19/2023 Assessment & Plan (03/06/2024 2:41 PM MANAGEMENT LIAISON): Continues prn with good response. Using bentyl, imodium, libiprostone and gas x. Chronic constipation 11/19/2023 Herpes zoster without complication 09/30/2023 Assessment & Plan (09/30/2023 3:32 PM CDT): Valtrex 1g BID for 10 days - renal dosing. Gabapentin for pain. Reviewed scheduling and side effects. Reviewed secondary skin infections; aware to not scratch vesicles. Follow-up with pharmacy regarding shingles vaccination in the future. Avoid spreading to others. Also recommend contacting or eye doctor for exam. No notable lesions on the nose so reassuring but would still recommend following up with them. Closed Colles' fracture of left radius with adiel yed healing 09/17/2023 Arthritis of carpometacarpal (CMC) joint of left thumb 08/20/2023 Tubular adenoma of colon 08/13/2023 Alternating constipation and diarrhea 08/02/2023 Assessment & Plan (11/28/2023 3:49 PM CDT): Again recommended use of miralax, she denies any abdominal pain or blood in stools. Assessment & Plan (08/02/2023 6:10 PM CDT): Chronic and unchanged per patient. Recommended MiraLax as needed to prevent underlying constipation. Can use Gas-X for bloating/cramping. No blood in stools or abdominal pain. Left wrist sprain 06/14/2023 Assessment & Plan (08/02/2023 6:11 PM CDT): Unable to take anti-inflammatories. Recommended continued use of brace and further evaluation with Orthopedic surgery. Assessment & Plan (07/01/2023 2:30 PM CDT): Improving. Recommend PT. She is agreeable and states understanding. Referral placed. Assessment & Plan (06/14/2023 2:57 PM MANAGEMENT LIAISON): Discussed xray findings, possible pseudogout. Discussed concerns of fracture as well. Patient unable to take nsaids with anticoagulation. Prescribed low dose prednisone taper. Recommended further evaluation with orthopedic surgery. Continue wearing splint/brace, rest and ice. Gait instability 05/23/2023 Assessment & Plan (07/01/2023 2:29 PM CDT): Ambulating with Rollator. Improving with PT and will continue. Safety reviewed. Assessment & Plan (05/23/2023 3:23 PM MANAGEMENT LIAISON): Referral to palliative care. I believe they can help provide PT as well. If not let us know and we can place separate order for home health physical therapy to help with deconditioning. Postmenopausal 05/23/2023 Assessment & Plan (05/23/2023 3:23 PM MANAGEMENT LIAISON): DEXA scan ordered. Will plan accordingly once results received. Sleep disturbance 02/19/2023 Assessment & Plan (02/19/2023 2:37 PM MANAGEMENT LIAISON): Improving with trazodone, reviewed sleep study from 2017 today with patient and daughter, no significant apnea. Encouraged adequate sleep hygiene. Will discuss medication side effects Psychiatry at upcoming appointment. No changes made today. Delirium 02/19/2023 Assessment & Plan (02/19/2023 2:38 PM MANAGEMENT LIAISON): Improving; patient and daughter noting delirium following medication changes made during the month of January. Delirium also correlating with sleep disturbance and lack of sleep. Lab work was reassuring. No evidence secondary infection. Encounter for annual wellness exam in Medicare p atient 11/02/2022 Assessment & Plan (11/05/2024 2:40 PM CDT): Preventative exam; reviewed screenings and vaccinations. No falls or safety concerns. Patient assistance in ADLs by her and daughter. No acute changes in memory or behavioral disturbances. He is taking medications as prescribed. Up to date on screenings. Encouraged to increase activity for mood improvement, limited by hot weather. - Encourage engagement in activities as tolerated, considering weather conditions. Assessment & Plan (11/28/2023 3:48 PM CDT): Preventative exam; reviewed screenings and vaccinations. Assessment & Plan (11/02/2022 12:57 PM CDT): Preventive exam; reviewed recommended preventive screenings and vaccinations. Encourage annual flu vaccine. Pacemaker 09/29/2022 09/29/2022 Overview (09/29/2022): MARIEE CRTP IMPLANT 06/20/2021 DR AREVALO Pacemaker 09/29/2022 09/29/2022 Overview (09/29/2022): MARIEE CRTP IMPLANT 06/20/2021 DR AREVALO Chronic kidney disease 09/29/2022 Congestive heart failure 09/29/2022 023 Mild late onset Alzheimer dementia 08/03/2022 Assessment & Plan (11/05/2024 4:00 PM CDT): Memory decline with vivid dreams. Namenda initiated with no significant side effects. - Continue Namenda (memantine) as prescribed. - Monitor cognitive function and follow up with neurology memory center in six months. Assessment & Plan (07/02/2024 8:44 AM CDT): Stable on donepezil. No GI side effecst. Assessment & Plan (03/06/2024 3:24 PM MANAGEMENT LIAISON): Patient provide excellent history review of recent appointments with specialists and relevant medication changes today. She acknowledges she is forgetful but overall seems to be doing very well. No safety concerns. Continues donepezil, started in August of this year by Neurology. Assessment & Plan (05/23/2023 3:22 PM MANAGEMENT LIAISON): Appropriate conversation today. A&O x3. She does have an appointment Neurology as well. Follows with Psychiatry. Safety reviewed. Assessment & Plan (11/02/2022 1:02 PM CDT): Recently started rivastigmine which she reports she is tolerating well at this time. No safety concerns. Foreign body in airway 12/11/2021 Aspiration into respiratory tract, initial encou nter 12/11/2021 History of migraine headaches 12/11/2021 Primary insomnia 12/11/2021 Aspiration pneumonia of right lower lobe 022 Overview (12/11/2021): Added automatically from request for surgery [id number] Assessment & Plan (12/21/2021 2:18 PM CDT): Completed azithromycin. Denies any fevers or changes in breathing/cough/wheezing. Encounter for screening mammogram for breast can cer 08/03/2021 Assessment & Plan (08/03/2021 2:39 PM CDT): Patient to call and schedule mammogram after 08/15/2021. Need for immunization against influenza 03/02/20 Controlled type 2 diabetes jaya wilde with stage 3 chronic kidney disease, with long-term current use of insulin 03/02/2021 Assessment & Plan (09/03/2024 2:26 PM CDT): Will get A1C and CMP. Will continue to monitor. Orders: Comprehensive metabolic panel; Future Hemoglobin A1c; Future Assessment & Plan (06/11/2024 10:28 AM MANAGEMENT LIAISON): CMP, A1C, and albumin creatine ratio ordered. Will continue to monitor. Assessment & Plan (11/02/2022 1:00 PM CDT): A1c stable but not at goal. Discussed concerns with decreased kidney function and inadequate glucose control. Currently taking metformin 500 mg twice daily. Will start lantus 10 units night, instructed patient to monitor daily am blood glucose and increase insulin by 2 units weekly for glucose >140. Repeat labs ordered, follow up in 3 months. Monofilament testing completed, no loss of protective senses. BP well controlled Assessment & Plan (08/03/2021 2:40 PM CDT): A1c has been stable will repeat A1c patient to monitor blood glucose closely while completing prednisone taper. Monofilament exam normal today, Patient does follow with Podiatry. Continue current medications without change. Reviewed diet and exercise recommendations. Assessment & Plan (03/02/2021 1:08 PM MANAGEMENT LIAISON): Lab Results Component Value Date HGBA1C 7.2 03/02/2021 HGBA1C 7.3 09/29/2020 HGBA1C 7.0 (H) 01/26/2020 Continue current medications. Reviewed diet and exercise recommendations. Personal history of colonic polyps 06/22/2020 Overview (06/22/2020): Added automatically from request for surgery [id number] Encounter for osteoporosis s creening in asymptomatic postmenopausal patient 06/22/2020 Overview (06/22/2020): Added automatically from request for surgery [id number] Assessment & Plan (2021 8:47 AM CDT): Patient aware to call and schedule DEXA screening. Assessment & Plan (03/02/2021 11:59 AM MANAGEMENT LIAISON): Dexa ordered. Pneumonia due to COVID-19 virus 03/21/2020 Assessment & Plan (03/21/2020 9:54 AM MANAGEMENT LIAISON): COVID-19 RNA positive in the ED. CXR shows hazy, indistinct bilateral infiltrates per my interpretation. CT shows scattered ground-glass opacities consistent with infectious process such as COVID-19 pneumonia. Will not yet start remdesivir as she is at her baseline respiratory function, but will continue antibiotics started in the ED and start dexamethasone for a suspected COPD exacerbation causing her yellow sputum production (superimposed bacterial pneumonia less likely without any fevers). Monitor respiratory function closely. Positive FIT (fecal immunochemical test) 020 Overview (02/15/2020): Added automatically from request for surgery [id number] Recurrent major depressive disorder 04/21/2019 Hypokalemia 03/24/2019 Chronic respiratory failure with hypoxia (CMS/HC C) 03/24/2019 Assessment & Plan (11/05/2024 4:03 PM CDT): Tar And Ammonia Pump Operator appointment scheduled later this summer. No change in oxygen requirements. Assessment & Plan (08/27/2024 2:16 PM CDT): No change in supprotive care. No increased dyspnea on exerition. NO increaed requirement. Assessment & Plan (08/13/2024 2:36 PM CDT): Will treat forearm COPD exacerbation with prednisone burst. She has a list of 12 allergies to most antibiotics. She reports she can tolerate azithromycin. Will E scribe. Encouraged nebulizer use. Will also have labs today. Will monitor response. Red flags reviewed. Also place referral to palliative care. Appreciate their expertise. Assessment & Plan (08/07/2024 3:43 PM CDT): No changes in oxygen requirements. Assessment & Plan (07/02/2024 8:44 AM CDT): As above. Assessment & Plan (03/02/2021 12:25 PM MANAGEMENT LIAISON): No changes in home O2 requirements. Follows with pulmonology. Assessment & Plan (03/21/2020 9:49 AM MANAGEMENT LIAISON): Continue home 2 L supplemental O2 by nasal cannula. Other persistent atrial fibrillation 03/09/2019 Assessment & Plan (02/27/2021 1:17 PM MANAGEMENT LIAISON): Patient has had no evidence for any recurrent persistent atrial fibrillation. She will continue with conservative management. Assessment & Plan (09/01/2020 11:42 AM CDT): I asked the patient to track her episodes of diaphoresis to see if these are related to accelerated rates with her chronic atrial fibrillation. Assessment & Plan (05/03/2020 2:03 PM MANAGEMENT LIAISON): The patient has noticed accelerated ventricular response rates with her atrial fibrillation since her COVID-19 pneumonia. We will at least transiently dose adjust her atenolol to 50 mg twice a day instead of once a day to help compensate this at least in the short term. We will review her care in 3 months and possibly reduce her atenolol dose at that time. Current use of terminal makeup operator anticoagulation 019 Assessment & Plan (08/03/2021 2:41 PM CDT): No signs and symptoms of bleeding. Assessment & Plan (03/02/2021 12:24 PM MANAGEMENT LIAISON): No s/s of bleeding. Reviewed precautions. Assessment & Plan (02/27/2021 1:17 PM MANAGEMENT LIAISON): Patient has had no major bleeding events with the use of her oral anticoagulation. This will continue. Assessment & Plan (09/01/2020 11:42 AM CDT): Patient has had no major bleeding events. She will continue with oral anticoagulation Atrial fibrillation 02/17/2019 Assessment & Plan (02/17/2019 11:29 AM MANAGEMENT LIAISON): ECG shows sinus tachycardia. Continue home atenolol. Add diltiazem 90mg tid. Cardiology consulted. Hyperkalemia 02/17/2019 Assessment & Plan (08/03/2021 2:42 PM CDT): Will check potassium level And continue to monitor. Assessment & Plan (02/17/2019 12:24 PM MANAGEMENT LIAISON): Due to KYLEE with spironolactone use and potassium supplementation. Continue diuresis as above. Hold home spironolactone and potassium supplement. Improved overnight, continue to monitor. Restrictive lung disease 10/10/2018 Assessment & Plan (10/10/2018 11:38 AM CDT): Pulmonary function testing on July 23, 2018 has shown: 1. Moderate restrictive lung disease, 2. FEV1 has shown no response to bronchodilator, 3. Severe impairment of diffusion capacity, 4. Decreased airway resistance. Decreased diffusion capacity 10/10/2018 Assessment & Plan (10/10/2018 11:39 AM CDT): Pulmonary function testing on July 23, 2018 has shown: 1. Moderate restrictive lung disease, 2. FEV1 has shown no response to bronchodilator, 3. Severe impairment of diffusion capacity, 4. Decreased airway resistance. Possible causes of decreased DLCO: 1. Pulmonary arterial hypertension, 2. Interstitial lung disease. We will repeat PFT in 6 months. Pulmonary arterial hypertension (CMS/HCC) 2018 Assessment & Plan (09/01/2020 11:42 AM CDT): Patient continues with the use of sildenafil for her pulmonary hypertension. Assessment & Plan (10/10/2018 11:45 AM CDT): She is a known case of pulmonary arterial hypertension. Currently she is on sildenafil 20 mg 3 times a day Follow-up echocardiogram on March 19, 2018 revealed: 1. Ejection fraction: 50% 2. Grade 2 diastolic dysfunction, 3. RVSP: 81 mm of mercury. We will repeat echocardiogram in 6 months. Hyponatremia 10/07/2018 Assessment & Plan (03/21/2020 9:42 AM MANAGEMENT LIAISON): Most likely due to poor p.o. intake secondary to COVID-19. Na improved from 128 to 132 after 500 mL normal saline bolus, continue IV hydration with an additional 500 mL bolus of normal saline at this time. Hold home Lasix and Aldactone for now. Monitor Na level. Assessment & Plan (10/07/2018 11:37 PM CDT): Acute on chronic. Patient having a headache with nausea which could also be related to migraine although she states her migraines have improved since she entered menopause. She presented with a sodium 126 and received Lasix. Will order stat BMP to see what sodium level is now. If hyponatremia as worsen, will transfer to ICU for hypertonic saline as she may have symptomatic hyponatremia. Patient does have baseline hyponatremia of 130 to in July. Patient did have hyponatremia in April which was attributed to multiple medications. She was seen by Nephrology and medication adjustments were made. Her sodium was improving. Shortness of breath 10/07/2018 Assessment & Plan (10/10/2018 11:43 AM CDT): Possible causes: 1. Pulmonary arterial hypertension, 2. ILD, 3. Morbid obesity, 4. Physical deconditioning. Assessment & Plan (10/07/2018 11:13 PM CDT): Due to coughing with possible aspiration. Patient does have wheezing and rhonchi on exam. Will continue with breathing treatments and steroids. Patient not showing any signs of infection at this time, no leukocytosis or fever or infiltrate on x- ray. Likely patient has pneumonitis rather than pneumonia at this time. No antibiotics unless patient's show signs of infection. Will DC ID consult. KYLEE (acute kidney injury) 10/07/2018 Assessment & Plan (12/19/2023 5:36 PM CDT): Improving; will repeat labs after her appointment today. Encouraged her to continue to drink plenty of water. Assessment & Plan (02/17/2019 12:23 PM MANAGEMENT LIAISON): Suspect due to decreased renal perfusion from acute on chronic diastolic heart failure. Creatinine improved with Lasix overnight. Continue diuresis as above. Monitor creatinine and avoid nephrotoxins. Assessment & Plan (10/07/2018 11:29 PM CDT): Possible. Patient has a baseline creatinine of between 0.55-0.7. Will hold off on nephrotoxins at this time. Holding all diuretics and Arb. Continue to monitor. Normocytic anemia 10/07/2018 Assessment & Plan (10/07/2018 11:36 PM CDT): Patient's baseline hemoglobin is between 11 and 12. She denies any black or bloody stools or hematuria or bleeding anywhere. She recently had an EGD which showed mild diffuse gastropathy earlier this month. Will hold off on anticoagulation and aspirin at this time. Continue to monitor. Patient had a colonoscopy in 2016 which showed 1 polyp. Esophageal dysphagia 09/05/2018 Overview (09/05/2018): Added automatically from request for surgery [id number] [facility] (dyspnea on exertion) 06/05/2018 Assessment & Plan (06/05/2018 12:30 AM MANAGEMENT LIAISON): Etiology of exertional shortness of breath is multifactorial includin. Morbid obesity, 2. Physical deconditioning, 3. Pulmonary arterial hypertension, 4. Congestive heart failure, 5. Airway hyperreactivity. She was advised to continue with sildenafil and CHF medications. Weight management counseling was provided as well. Chronic fatigue 06/05/2018 Assessment & Plan (09/03/2024 2:26 PM CDT): Will check vitamin D, B 12, TSH, T4, CBC, and iron levels to check for deficiency. Will continue to monitor and await results to figure out next step. Orders: Vitamin D 25 hydroxy; Future Vitamin B12; Future TSH; Future T4, free; Future CBC with auto differential; Future Iron profile w/ IBC; Future Ferritin; Future Assessment & Plan (06/05/2018 12:25 AM MANAGEMENT LIAISON): She complains of fatigue and lack of energy. Etiology is multifactorial includin. Underlying endocrinopathies (diabetes mellitus, possible hypothyroidism), 2. Morbid obesity/physical deconditioning, 3. Medications. TSH and free T4 were ordered. Hilar enlargement 06/05/2018 Assessment & Plan (06/05/2018 12:29 AM MANAGEMENT LIAISON): Chest x-ray on April 27, 2018 revealed: 1. Persistent cardiomegaly and bilateral perihilar and left lower lobe infiltrates. 2. No new consolidations. Chest CT was ordered. Chronic diastolic heart failure 06/05/2018 Assessment & Plan (08/13/2024 2:33 PM CDT): No signs of fluid overload today. Continue current regimen. Will continue monitoring. Assessment & Plan (07/02/2024 8:42 AM CDT): Reivweed fluid status. No s/s of fluid overload at present. No orthopena, no PND. Assessment & Plan (07/01/2023 2:31 PM CDT): Clinically stable. Continue medication regimen. Continue healthy lifestyle. Will continue to monitor. Assessment & Plan (08/03/2021 2:42 PM CDT): Patient to continue checking daily weights. Will repeat labs in 1 week. Patient is followed by Cardiology. Assessment & Plan (03/02/2021 11:58 AM MANAGEMENT LIAISON): HF remains stable. Patient is followed by Dr. Gabriel. No changes in weight, or complaints of chest pain. Assessment & Plan (02/27/2021 1:16 PM MANAGEMENT LIAISON): Patient's heart failure remains stable and without need for alteration to her medical regimen. I will plan to review her care in about 6 months. Assessment & Plan (09/01/2020 11:41 AM CDT): Patient remains euvolemic on exam. She has had no decline in or dyspnea. She will continue with her current medical regimen. Assessment & Plan (03/21/2020 9:49 AM MANAGEMENT LIAISON): Holding home Lasix and spironolactone while hyponatremic, continue the rest of home cardiac regimen. Assessment & Plan (10/07/2018 11:22 PM CDT): Patient is not fluid overloaded on exam. She states her lower extremity edema is stable if not better than usual. She does admit to weight gain which she relates to not adhering to her diet. Low suspicion for CHF exacerbation. Will DC IV Lasix and hold p.o. Lasix due to hyponatremia. Continue beta-evelia. Assessment & Plan (06/05/2018 12:34 AM MANAGEMENT LIAISON): Echocardiogram on March 19, 2018 revealed: 1. Ejection fraction: 50% 2. Grade 2 diastolic dysfunction, 3. RVSP: 81 mm of mercury. The patient was advised to continue with combination of furosemide and spironolactone. Mild persistent asthma without complication 05/17 Assessment & Plan (06/05/2018 12:39 AM MANAGEMENT LIAISON): She was diagnosed with asthma long time ago based on clinical symptoms and physical examination however she has never had a PFT done. Currently she is on combination of Advair Diskus 250 mcg 1 puff b.i.d. And albuterol inhaler 2 puffs as needed. Pulmonary function testing and 6 min walk test were arranged. Non-seasonal allergic rhinitis due to pollen Assessment & Plan (10/10/2018 11:31 AM CDT): We will continue with combination of azelastine and fluticasone nasal spray. Assessment & Plan (06/05/2018 12:41 AM MANAGEMENT LIAISON): She has all clinical features of allergic rhinitis. She was started on azelastine nasal spray. Chronic obstructive pulmonary disease 04/18/2018 Assessment & Plan (04/18/2018 5:28 AM MANAGEMENT LIAISON): Continue with IV Solu-Medrol Duo nebs, albuterol per respiratory protocol Will repeat ABGs. Continue with Zyrtec and singular. Chronic bilateral low back pain with bilateral s ciatica 06/19/2017 Assessment & Plan (11/02/2022 1:01 PM CDT): Some relief with use of acetaminophen. Patient is interested in physical therapy. Denies any weakness or numbness. No problems with constipation or numbness. Assessment & Plan (07/10/2017 1:18 PM CDT): 06/19/17 L-spine x-ray results IMPRESSION: 1. No acute fracture. 2. Grade 1 anterolisthesis of L4 on L5. 3. Degenerative disc disease and facet arthropathy at multiple levels. Pt. Undergoing PT but had to stop due to her coughing and shortness of breath. Will order another round of antibiotics and steroids; Assessment & Plan (06/19/2017 12:34 PM MANAGEMENT LIAISON): Lumbar back pain without sciatica. Will have patient try a muscle relaxant and pain medications. Will get x-ray of the spine to rule out structural damage. If x-ray is ok, will order PT Class 3 severe obesity due t o excess calories with serious comorbidity and body mass index (BMI) of 40.0 to 44.9 in adult 06/19/2017 Assessment & Plan (09/03/2024 2:26 PM CDT): Encouraged heart healthy diet and lifestyle. Advised 150 min/week of aerobic exercise. Assessment & Plan (05/23/2023 3:22 PM MANAGEMENT LIAISON): Discussed physical deconditioning. Will place referral to palliative care as they maybe able to provide PT as well. Encourage activity as tolerated. Assessment & Plan (12/21/2021 5:40 PM CDT): Discussed healthy diet and importance of regular physical activity. Assessment & Plan (08/03/2021 2:39 PM CDT): Discussed healthy diet and importance of regular physical activity. Assessment & Plan (03/02/2021 11:59 AM MANAGEMENT LIAISON): Encouraged weight loss. Reviewed diet and exercise recommendations. Assessment & Plan (02/17/2019 12:37 PM MANAGEMENT LIAISON): Encourage weight loss. Assessment & Plan (07/10/2017 1:25 PM CDT): Obesity is unchanged. Discussed the patient's BMI. The BMI is above average; BMI management plan is completed. Diet interventions: low calorie (1000 kCal/d) deficit diet. Assessment & Plan (06/19/2017 12:30 PM MANAGEMENT LIAISON): Obesity is unchanged. Discussed the patient's BMI. The BMI is above average; BMI management plan is completed. Informal exercise measures discussed, e.g. taking stairs instead of elevator. Diet-Many types of diets produce modest weight loss. Options include balanced low-calorie, low-fat low-calorie, moderate-fat low-calorie, low-carbohydrate diets, and the Mediterranean diet. Dietary adherence is an important predictor of weight loss, regardless of the type of diet. Exercise -- Although less potent than dietary restriction in promoting weight loss, increasing energy expenditure through physical activity is a strong predictor of weight loss maintenance. Physical activity should be performed for approximately 30 minutes or more, five to seven days a week, to prevent weight gain and to improve cardiovascular health. Behavior modification or behavior therapy is one cornerstone in the treatment for obesity. The goal of behavioral therapy is to help patients make long-term changes in their eating behavior by modifying and monitoring their food intake, modifying their physical activity, and controlling cues and stimuli in the environment that trigger eating. At least 30 minutes a day for at least 5 days a week for a total of 150 minutes a week or moderate-intensity activity! Something is always better than nothing! Calculus of gallbladder 01/12/2015 Overview (07/21/2016): Cholelithiasis Pulmonary hypertension 04/15/2012 Overview (09/29/2022): Pulmonary hypertension Assessment & Plan (12/19/2023 5:37 PM CDT): No changes in oxygen requirements. Assessment & Plan (02/17/2019 12:27 PM MANAGEMENT LIAISON): Continue home sildenafil and supplemental O2 (2L by NC). Assessment & Plan (10/10/2018 11:42 AM CDT): She is a known case of pulmonary arterial hypertension. Currently she is on sildenafil 20 mg 3 times a day Follow-up echocardiogram on March 19, 2018 revealed: 1. Ejection fraction: 50% 2. Grade 2 diastolic dysfunction, 3. RVSP: 81 mm of mercury. We will repeat echocardiogram in 6 months. Assessment & Plan (10/07/2018 11:14 PM CDT): Continue sidenafil Assessment & Plan (06/05/2018 12:19 AM MANAGEMENT LIAISON): She is a known case of pulmonary arterial hypertension. Currently she is on sildenafil 20 mg 3 times a day Follow-up echocardiogram on March 19, 2018 revealed: 1. Ejection fraction: 50% 2. Grade 2 diastolic dysfunction, 3. RVSP: 81 mm of mercury. She also had right Heart catheterization in 2016. Assessment & Plan (04/18/2018 5:32 AM MANAGEMENT LIAISON): Will start on diuresis. Continue with sildenafil HENRI (obstructive sleep apnea) 04/15/2011 Overview (07/21/2016): Sleep apnea Assessment & Plan (10/10/2018 11:41 AM CDT): She was diagnosed with obstructive sleep apnea in 2014. Interstitial lung disease 04/15/2009 Overview (07/21/2016): Interstitial lung disease Assessment & Plan (07/02/2024 8:44 AM CDT): Continues supplemental O2 and nebulaizer therapy. Assessment & Plan (03/06/2024 3:25 PM MANAGEMENT LIAISON): No change in oxygen requirement. Following with pulmonology Dr. Sanchez. Reports she seemed to have a cough and mild wheezing earlier this week which has since resolved. Is feeling well at this time, no changes in appetite no fevers. Assessment & Plan (11/28/2023 3:52 PM CDT): Reports dry cough for the past 2-3 weeks, feels it could be from sinus drainage. No changes in breathing or increase in shortness of breath. No change in oxygen requirements. Assessment & Plan (11/28/2023 3:49 PM CDT): Following with pulmonology, no change in oxygen requirements. Assessment & Plan (07/01/2023 2:29 PM CDT): Currently stable. Follows closely with pulmonology and will continue to do so. Assessment & Plan (05/23/2023 3:20 PM MANAGEMENT LIAISON): Chronic. No increased dyspnea. Recommend saline nasal spray, Flonase, oral antihistamine for PND. Will monitor response. Continue following with pulmonology as well. Assessment & Plan (11/02/2022 11:44 AM CDT): No change in oxygen requirement. Managed by pulmonology, Dr. Sanchez. Assessment & Plan (12/21/2021 2:19 PM CDT): Following with pulmonologyDr. Sanchez. Last OV 10/31/21. Denies any changes in oxygen requirements. Encouraged to schedule follow up following hospitalization. Assessment & Plan (02/17/2019 12:32 PM MANAGEMENT LIAISON): Continue home supplemental O2. Spinal stenosis of lumbar region 04/15/2007 Overview (07/21/2016): Lumbar spinal stenosis Osteoarthritis 04/15/2007 Overview (07/21/2016): Osteoarthritis Diabetes mellitus 04/15/2006 Overview (09/29/2022): Diabetes mellitus type 2 Assessment & Plan (07/02/2024 8:42 AM CDT): Reveiwed target glycemic control. No hypoglycemia. Assessment & Plan (03/06/2024 3:26 PM MANAGEMENT LIAISON): Stable; doing well with metformin XR. Lab Results Component Value Date HGBA1C 6.8 03/06/2024 HGBA1C 7.2 (H) 11/01/2023 HGBA1C 7.2 02/19/2023 Assessment & Plan (11/28/2023 4:13 PM CDT): Stable; no changes made today. Last A1c 7.2%. Assessment & Plan (11/04/2023 2:37 PM CDT): Lab Results Component Value Date HGBA1C 7.2 (H) 11/01/2023 HGBA1C 7.2 02/19/2023 HGBA1C 7.9 (H) 08/03/2022 A1c slightly above goal. Increase insulin to 12 units nightly. Continues metformin 500 xr, will trial taking medication in the evening. Assessment & Plan (05/23/2023 3:22 PM MANAGEMENT LIAISON): Recent A1c 7.2%. Continue with current regimen. Will continue to monitor. Red flags reviewed. Assessment & Plan (03/02/2021 12:24 PM MANAGEMENT LIAISON): Results for orders placed or performed in visit on 03/02/21 POCT hemoglobin A1c Result Value Ref Range Hemoglobin A1C, POC 7.2 POCT lipid panel Result Value Ref Range Cholesterol, POC 177 mg/dL HDL, POC 55 mg/dL Triglycerides, POC 190 mg/dL LDL, Direct, POC 84 mg/dL Chol/HDL Ratio, POC 3.2 Non-HDL Cholesterol, POC 122 mg/dL Cholesterol Total, POC 177 mg/dL Continues rosuvastatin 10mg daily. Assessment & Plan (03/21/2020 9:51 AM MANAGEMENT LIAISON): Replace home metformin with basal/bolus insulin regimen while inpatient. Assessment & Plan (02/17/2019 12:38 PM MANAGEMENT LIAISON): Continue home Actos. A1c was 5.9 on 12/23/2018. Assessment & Plan (10/07/2018 11:11 PM CDT): Patient only on Actos at home. She is currently receiving steroids with NPH. Will add a mid dose sliding scale and continue to monitor. Assessment & Plan (04/18/2018 5:34 AM MANAGEMENT LIAISON): Hold oral hypoglycemics. Start on medium dose sliding scale insulin and Lantus 10 units daily Will titrate the dose up as needed Anxiety 04/15/2004 Overview (07/21/2016): Anxiety Assessment & Plan (02/17/2019 12:27 PM MANAGEMENT LIAISON): Replace home Tranxene with formulary Ativan p.r.n. while inpatient. Assessment & Plan (10/07/2018 11:18 PM CDT): Home medications have been resumed. Patient is on Tranxene at home, will interchange with p.r.n. Xanax. Anxiety and depression 04/15/2004 Overview (07/21/2016): Depression Assessment & Plan (11/04/2023 2:45 PM CDT): Continues to see Dr. Townsend, scheduled for follow up next month. States her has been frustrating her the past few days after finding unauthorized charges on credit card. Patient does report feeling isolated. Patient has son and daughter who live locally. Generally sees them a few times per week. Encouraged patient to try to plan small activities/events that she can look forward to (smaller things like facetime calls with grandchildren or look at bigger trips like visiting son who lives in [place]) Assessment & Plan (02/19/2023 2:29 PM MANAGEMENT LIAISON): Patient is scheduled for follow-up with Dr. Watts in 2 days. Patient with multiple medication changes in the past few weeks. Assessment & Plan (11/02/2022 11:43 AM CDT): Following with Dr. Townsend, did not tolerate increase in fluoxetine 2/2 sleep disturbance. Continues fluoxetine 40 mg daily. Assessment & Plan (02/17/2019 12:25 PM MANAGEMENT LIAISON): Continue home antidepressants. Hyperlipidemia associated with type 2 diabetes jaya hammondmilly 04/15/2004 Overview (09/29/2022): Hyperlipidemia Assessment & Plan (11/05/2024 3:58 PM CDT): Cholesterol well controlled, will lipid panel with CBC/iron studies in the next 1-2 months. Continue rosuvastatin 10 mg daily. Assessment & Plan (07/02/2024 8:42 AM CDT): Continues on rosuvastatin for lipid management and will montior respnose. Assessment & Plan (06/11/2024 10:27 AM MANAGEMENT LIAISON): Lipid panel ordered. Will continue to monitor. Continues on Rosuvastatin. Assessment & Plan (11/28/2023 3:48 PM CDT): Stable; continue rosuvastatin 10 mg daily. No changes made today. Assessment & Plan (12/21/2021 5:40 PM CDT): Condition is stable Discussed/ordered labs, encouraged healthy, low carbohydrate lifestyle and at least 150min/week of exercise, continue on rosuvastatin 10 mg tablet once daily. Assessment & Plan (02/17/2019 12:38 PM MANAGEMENT LIAISON): Continue home fish oil. Migraine 04/15/1992 Overview (07/21/2016): Migraine Assessment & Plan (11/05/2024 3:59 PM CDT): Refilled esgic, discussed sparing use. Continues Imitrex as needed. Assessment & Plan (07/02/2024 8:45 AM CDT): WIll add ubrelvy for attempts of both abortive and prophylactic agents and will follow response. Assessment & Plan (10/07/2018 11:23 PM CDT): Patient takes p.r.n. Fiorinal at home. Currently has a headache with nausea which is worse than usual. She states her migraines improved after menopause. Headache may be a attributed to symptomatic hyponatremia, awaiting repeat BMP. In the meantime, p.r.n. Fioricet has been ordered. Gastroesophageal reflux disease 04/15/1989 Overview (07/21/2016): GERD Assessment & Plan (02/17/2019 12:25 PM MANAGEMENT LIAISON): Continue home Protonix. Assessment & Plan (04/18/2018 5:29 AM MANAGEMENT LIAISON): Continue with Protonix Mitral valve insufficiency 04/15/1986 Overview (07/21/2016): Mitral valve regurgitation Hypertension 04/15/1984 Overview (09/29/2022): Hypertension Assessment & Plan (03/21/2020 9:43 AM MANAGEMENT LIAISON): Continue home diltiazem, clonidine, and atenolol. Holding home Aldactone and Lasix while hyponatremic. Assessment & Plan (02/17/2019 12:36 PM MANAGEMENT LIAISON): Continue home antihypertensives with diltiazem added. Assessment & Plan (10/07/2018 11:25 PM CDT): Accelerated. Patient is on clonidine 0.2 t.i.d. And last took a dose this morning. Clonidine has been resumed. Patient is also on atenolol which has been resumed with hold parameters. Holding Lasix and spironolactone due to hyponatremia and suspected acute kidney injury. Holding only started due to suspected acute kidney injury. Patient has p.r.n. Hydralazine. Assessment & Plan (04/18/2018 5:30 AM MANAGEMENT LIAISON): Patient initially noted to have severely elevated blood pressure. Was treated with hydralazine Restart home medications. Start on hydralazine 10 mg q.i.d. As needed for systolic blood pressure elevation more than 160 Microcytic anemia Stage 3b chronic kidney disease Assessment & Plan (03/02/2021 12:27 PM MANAGEMENT LIAISON): GFR 03/2020: 52 GFR 05/2020: 37 Resolved Problems Problem Noted Date Diagnosed Date Resolved Date Oral thrush 03/29/2020 03/02/2021 Upper respiratory infection with cough and congestion 03/24/2019 03/02/2021 BMI 45.0-49.9, adult (CMS/HCC) 06/05/2018 03/02/2021 Assessment & Plan (10/10/2018 11:43 AM CDT): Stable BMI. No significant weight loss since 6 months ago. Assessment & Plan (06/05/2018 12:21 AM MANAGEMENT LIAISON): Weight management counseling was provided for 10 min. Lifestyle change and diet modification were discussed with the patient in detail. Acute on chronic diastolic c ongestive heart failure 04/18/2018 03/21/2020 Overview (04/18/2018): BNP is elevated Patient also exhibits bilateral Lower extremity edema. History of COPD, pulmonary hypertension Will go ahead and diurese with IV Lasix Monitor I&Os Monitor kidney function with daily BMP Replete electrolytes as needed Last echocardiogram was done in January of 2018 consistent with diastolic dysfunction and EF of 50%. Assessment & Plan (02/17/2019 12:22 PM MANAGEMENT LIAISON): BNP elevated higher than usual and patient is presenting with worsened pedal edema, shortness of breath, and mild pulmonary edema on CXR. Likely caused by tachycardia. Control heart rate as above. Double home Lasix for now. Cardiology consulted. Continue home cardiac regimen. Bronchitis 07/10/2017 03/02/2021 Moderate COPD (chronic obstr uctive pulmonary disease) ([facility]) 04/15/2002 08/03/2022 Overview (07/21/2016): Moderate COPD Assessment & Plan (08/03/2021 2:41 PM CDT): Patient is following with pulmonology. She denies any increase in oxygen requirements. Does note improvement following prednisone taper prescribed by the ER. Assessment & Plan (02/17/2019 12:30 PM MANAGEMENT LIAISON): Completed treatment of a COPD exacerbation with antibiotics and prednisone 1 week ago. Minor worsening of symptoms occurred on Saturday, however the shortness of breath and wheezing have mostly resolved at this point without further treatment. Continue home Singulair. Replace home Advair with formulary Symbicort while inpatient. Albuterol nebs p.r.n. Assessment & Plan (10/07/2018 11:19 PM CDT): Continue Advair and breathing treatment Assessment & Plan (07/10/2017 1:20 PM CDT): COPD is worsening. COPD information handout given.Pt still with coughing and shortness of breath. Lungs with wheezing throughout. Last CT of chest 11/14/2016 showed IMPRESSION: STABLE RIGHT ANTERIOR BASAL SUBPLEURAL 13 MM NODULE OPACITY, QUERY ATELECTASIS. PERSISTENT SUBSEGMENTAL ATELECTASIS OF THE LINGULA AND ANTERIOR BASE. CARDIOMEGALY WITH SUGGESTION OF PULMONARY ARTERIAL HYPERTENSION. INTERVAL RESOLUTION OF MOSAIC ATTENUATION AND GROUNDGLASS OPACITY. NO EVIDENCE OF INTERSTITIAL LUNG DISEASE. SMALL SCLEROTIC T3 OSSEOUS LESION IS UNCHANGED. MILD CORONARY ARTERY CALCIFICATION. MID LOWER THORACIC DISC DEGENERATION WITH LARGE DISC OSTEOPHYTE AT T8-T9 WITH CANAL COMPROMISE. Acute on chronic respiratory failure with hypoxia 04/21/2019 Acute on chronic systolic heart failure 03/09/2019 Encounters Date Type Department Care Team Description 02/08/2025 3:00 PM CDT Social Work [facility] [address] [phone] Carolina Dunn LCSW 01/22/2025 Telephone [facility] Gastroenterology at [address] [place] [phone] Karla Parker 01/18/2025 3:00 PM CDT Social Work [facility] [address] [phone] Carolina Dunn LCSW 01/13/2025 Orders Only [facility] [address] [place] [phone] Maurilio Torrez MD 12/28/2024 Telephone [facility] [address] [phone] Carolina Dunn LCSW 12/17/2024 Telephone [facility] [address] [phone] Maurilio Torrez MD Call Back 12/11/2024 Results Follow-Up [facility] [address] [phone] Cristian Contreras, SPECIAL EDUCATION ASSOCIATE Ferritin, Iron profile w/ IBC, Lipid panel, Additional followed-up results: 4 12/07/2024 4:00 PM CDT Lab [facility] [address] [place] [id number] Other iron deficiency anemia; Hyperlipidemia associated with type 2 diabetes mellitus (HCC) 12/07/2024 3:00 PM CDT Social Work [facility] [address] [phone] Carolina Dunn LCSW 11/13/2024 Results Follow-Up [facility] [address] [phone] Maurilio Torrez MD Urinalysis reflex to microscopic and culture Urine from Last 3 Months Immunizations Immunization Administration Dates Next Due Influenza, Quadrivalent, Hig h Dose, Preservative Free, Intrr 02/08/2023,12/21/2021,03/02/2021,01/25 Influenza, Quadrivalent, Spl it, Intramuscular 03/22/2015 Influenza, Quadrivalent, Spl it, Preservative Free, Intramuscular 03/13/2016 Influenza, Trivalent, Adjuva nted, Intramuscular 12/30/2017 Influenza, Trivalent, High D ose, Split, Preservative Free, Intramuscular 03/06/2024,12/23/2018,01/14/2017,03/21 Influenza, Trivalent, Preser vative Free, Intramuscular 12/14/2013,12/14/2013 Influenza, Unspecified 12/19/2023(Deferr ed: Patient Refused),12/30/2017,12/30/2017, 017,01/16/2017 Pfizer SARS-CoV-2 Monovalent Vaccination (12+ Yrs) PURPLE 05/12/2021,06/30/2020,06/10/2020 Pneumococcal Conjugate PCV 13 09/14/2011, 012 Pneumococcal Polysaccharide PPV23 03/13/2016 Surgical History Surgery Date Site/Laterality Comments KNEE ARTHROPLASTY Knee replacement OTHER SURGICAL HISTORY lumbar laminectomy OTHER SURGICAL HISTORY open R lung BX TONSILLECTOMY Tonsillectomy OTHER SURGICAL HISTORY lumbar laminectomy OTHER SURGICAL HISTORY left total knee repl OTHER SURGICAL HISTORY right total knee repl OTHER SURGICAL HISTORY R open lung bx TUBAL LIGATION tubal ligation LAPAROSCOPIC CHOLECYSTECTOMY 04/15/2014 - 04/14/2015 Cholecystectomy, laparoscopic CHOLECYSTECTOMY 04/15/2014 - 04/14/2015 COLONOSCOPY 08/24/2015 UPPER GASTROINTESTINAL ENDOSCOPY 03/16/2015 KNEE ARTHROSCOPY W/ LATERAL RELEASE 04/15/2005 - 04/14/2006 CATARACT EXTRACTION 04/15/2015 - 04/14/2016 JOINT REPLACEMENT 2008and 2009 SPINE SURGERY 04/15/2007 - 04/14/2008 CARDIAC CATHETERIZATION A-V CARDIAC PACEMAKER INSERTION CORONARY ARTERY BYPASS GRAFT ORGAN TRANSPLANT Medical History Medical History Date Comments Type 2 diabetes mellitus Diabete s type 2; Comments: [facility] 09/13/2014 - Hx Other Medical 2009 interstitial christian ng disease; Comments: [facility] 09/13/2014 - Hx Other Medical 2013 pulmonary hyper tension; Comments: [facility] 09/13/2014 - Hx Other Medical 2011 sleep apnea; Co mments: [facility] 09/13/2014 - Hypercholesterolemia High choles terol; Comments: [facility] 09/13/2014 - Hx Other Medical 2007 ruptured disc; Comments: [facility] 09/13/2014 - Hx Other Medical 2008 spinal stenosis ; Comments: [facility] 09/13/2014 - Hx Other Medical gall stones; Co mments: [facility] 09/13/2014 - Anxiety disorder Anxiety Chronic obstructive pulmonary disease COPD Hx Other Medical Headache, migra ine Hypertension Hypertension Gastroesophageal reflux disease GERD Depression Depression Diabetes mellitus Diabetes melli tus Hx Other Medical pulmpnary hTN Sleep apnea Sleep apnea Hx Other Medical ??interstitual lung disease CHF (congestive heart failure) ([facility]) 04/2018 Colon polyp Dysphagia Atrial fibrillation ([facility]) Anemia 03/2019 Arthritis 2007 Emphysema of lung 2002 Migraines 1992 Heart disease 2020 Retinitis Family History Medical History Relation Name Comments Hypertension Brother 2 Hypertension; Diabetes Brother 3 None Diabetes mellit us; Asthma Brother 4 Willian Drug abuse Brother 4 Willian Hypertension Brother 4 Willian Diabetes Brother 5 Larry Asthma Brother 7 Willian Drug abuse Brother 7 Willian Hypertension Brother 7 Willian Arthritis Father Walter William Heart disease Father Walter William Heart disease ; Hypertension Father Walter William Other Father Walter William mygolodysplast a syndrome; Thyroid disease Father Walter William Thyroid dis order; Arthritis Mother Stephanie COPD Mother Stephanie Diabetes Mother Stephanie Heart disease Mother Stephanie Heart disease; Hypertension Mother Stephanie Hypertension; Thyroid disease Mother Stephanie Thyroid diso rder; Diabetes Other 1 Family history of Diabetes mellitus; Other Other 2 Family history of cancer father; Coronary artery disease Other 3 Fami ly history of Coronary artery disease; Hypertension Other 4 Family history of Hypertension; Pneumonia Other 5 Family history of Pneumonia; Stroke Other 6 Family history of Stroke; Thyroid disease Other 7 Family histo ry of Thyroid disorder; COPD Other 8 Family history of COPD; Depression Other 9 Family history of Depression; Other Other 10 Family history of Pulmonary hypertension; Arthritis Other 11 Family history of Arthritis; Asthma Other 12 Asthma; Depression Other 13 Depression; Relation Name Status Comments Brother 1 (Age 56) Brother 2 Brother 3 None Brother 4 Willian Brother 5 Larry Brother 6 Larry Alive Brother 7 Willian Alive Father Walter William (Age 75) Mother Stephanie Other 1 Other 2 Other 3 Other 4 Other 5 Other 6 Other 7 Other 8 Other 9 Other 10 Other 11 Other 12 Other 13 Social History Tobacco Use Types Packs/Day Years Used Date Smoking Tobacco: Never Smokeless Tobacco: Never Tobacco Cessation:Counseling Given: Not Answered Alcohol Use Standard Drinks/Week Comments Yes 0 [...] materials from doctor or pharmacy Sometimes 02/07/2024 [facility] Utilities Answer Date Recorded In the past 12 months has [facility] [employer], oil, or water [employer] threatened to shut off services in your [...] week 12/17/2023 How often do you attend [facility] or orthodoxy services? Never 12/17/2023 Do you belong to any clubs o r organizations such as adventist groups, unions, fraternal or athletic groups, or [...] staff should administer the PHQ-9) 0 11/05/2024 [facility]at [facility] - Occupational Stress Questionnaire Answer Date [...] place to sleep or slept in a fci (including now)? No 05/16/2023 PHQ-9 Answer Date [...] any time in the past 12 [facility], were you homeless or living in a fci (including now)? No 12/17/2023 Personal Safety Answer Date Recorded Have you ever been in or are you currently in a harmful physical or emotional relationship or is someone making you feel afraid or unsafe? 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 Not on file Not on file Obstetrics History Para Term AB IAB SAB Ectopic Multiple Livin g Live Births 3 3 3 Date Outcome GA Total Labor Labor/2nd/3rd Weight Sex Type Anes PTL Nelly A1 A5 Name Clin Term Term Term Last Filed Vital Signs Vital Sign Reading Time Taken Comments Blood Pressure 108/74 11/05/2024 1:54 PM CDT Pulse 60 11/05/2024 1:54 PM CDT Temperature 36.7 C (98 F) 11/05/2024 1:54 PM CDT Respiratory Rate 18 11/05/2024 1:54 PM CDT Oxygen Saturation 97% 11/05/2024 1:54 PM CDT Inhaled Oxygen Concentration - - Weight 111.6 kg (246 lb) 11/05/2024 1:54 PM CDT Height 160 cm (5' 2.99) 11/05/2024 1:54 PM CDT Body Mass Index 43.59 11/05/2024 1:54 PM CDT Plan of Treatment Health Maintenance Due Date Last Done Comments Hepatitis C Screening 1945 DTaP/Tdap/Td Vaccine (1 - Tdap) 1957 Hepatitis B Screening 1964 Zoster Vaccine (1 of 2) 1996 Dilated Eye Exam 02/14/2023 02/14/2021, 01/2020, 11/24/2018, Additional history exists Covid-19 Vaccine (2024- 6 season) 2024 08/29/2021, 05/12/2021, 03/12/2021, Additional history exists Influenza Vaccine (#1) 2024 , 02/08/2023, 12/21/2021, Additional history exists Foot Exam 03/06/2025 03/06/2024, 10/14, 08/03/2021, Additional history exists Hemoglobin A1C 03/06/2025 09/03/2024, 06/14, 03/06/2024, Additional history exists Osteoporosis Screening-Bone Density Scan 06/04/2025 06/04/2023, 02/09/2019, 11/11/2014 Albumin Creatinine Ratio, Urine 06/11/2025 06/11/2024, 05/23/2023, 03/26/2022 Depression Screening 11/05/2025 11/05/2024, 09/03/2024, 07/09/2024, Additional history exists Fall Risk Assessment 11/05/2025 11/05/2024, 09/03/2024, 08/13/2024, Additional history exists Well Visit 65+ 11/05/2025 11/05/2024, 10/14, 11/02/2022, Additional history exists Lipid Panel 12/07/2025 12/07/2024, 06/14, 03/06/2024, Additional history exists eGFR 12/07/2025 12/07/2024, 08/14, 08/13/2024, Additional history exists Pneumococcal vaccine 65+ Completed 016, 09/14/2011, 09/14/2011 Colon Cancer Screening-CT Colonography Discontinued 08/31/2020, 08/24/2015, 08/24/2015 Colon Cancer Screening-Colonoscopy Discontinued 08/31/2020, 08/24/2015, 08/24/2015 Colon Cancer Screening-DNA Stool Discontinued 08/31/2020, 08/24/2015, 08/24/2015 Colon Cancer Screening-FIT Discontinued 08/31, 01/28/2020, 08/24/2015, Additional history exists Colon Cancer Screening-FOBT Discontinued 08/13, 01/28/2020, 08/24/2015, Additional history exists Colon Cancer Screening-Sigmoidoscopy Discontinued 08/31/2020, 08/24/2015, 08/24/2015 Colorectal Cancer Screening Discontinued Breast Cancer Screening-Mammogram Discontinued 10/02/2021, 08/15/2020, 01/20/2019, Additional history exists Procedures Procedure Name Priority Date/Time Associated Diagnosis Comments CARDIOLOGY DOCUMENT SCAN 01/13/2025 EGFR Routine 12/07/2024 3:58 PM CDT Hyperlipidemia associated with type 2 diabetes mellitus (HCC) DIFFERENTIAL AUTO Routine 12/07/2024 3:5 8 PM CDT Hyperlipidemia associated with type 2 diabetes mellitus (HCC) CBC WITH AUTO DIFFERENTIAL Routine 12/07/2024 3:58 PM CDT Hyperlipidemia associated with type 2 diabetes mellitus (HCC) COMPREHENSIVE METABOLIC PANEL Routine 12/07/2024 3:58 PM CDT Hyperlipidemia associated with type 2 diabetes mellitus (HCC) LIPID PANEL Routine 12/07/2024 3:58 PM CDT Hyperlipidemia associated with type 2 diabetes mellitus (HCC) IRON PROFILE W/ IBC Routine 12/07/2024 3 :58 PM CDT Other iron deficiency anemia FERRITIN Routine 12/07/2024 3:58 PM CDT Other iron deficiency anemia HEMOGLOBIN A1C Routine 09/03/2024 2:34 PM CDT Controlled type 2 diabetes mellitus with stage 3 chronic kidney disease, with long-term current use of insulin (HCC) ALBUMIN CREATININE RATIO, URINE Routine 06/11/2024 10:23 AM MANAGEMENT LIAISON Controlled type 2 diabetes mellitus with stage 3 chronic kidney disease, with long-term current use of insulin (HCC) DEXA AXIAL SKELETON BONE DENSITY 1 OR MORE SITES Schedule Routine, Read Routine (OP Routine) 06/04/2023 1:26 PM MANAGEMENT LIAISON Postmenopausal SCREENING MAMMOGRAM BILATERAL W KATINA Schedule Routine, Read Routine (OP Routine) 10/02/2021 3:50 PM CDT Encounter for screening mammogram for breast cancer HM DIABETES EYE EXAM Routine 02/14/2021 COLONOSCOPY 08/31/2020 1:19 PM CDT from Last 3 Months or Most Recently Relevant to Health Maintenance Results * Cardiology Document Scan (01/13/2025) Anatomical Region Laterality Modality Other Maurilio Torrez MD [facility] Final Result * (ABNORMAL) eGFR (12/07/2024 3:58 PM CDT) eGFR 21(L) >=60 mL/min/1. 73 m2 Comment: Interpretive Data Reference Interval Normal >/= 90 mL/min/1.73m2 Mildly decreased* 60 - 89 mL/min/1.73m2 Mildly to moderately decreased 45 - 59 mL/min/1.73m2 Moderately to severely decreased 30 - 44 mL/min/1.73m2 Severely decreased 15 - 29 mL/min/1.73m2 Kidney Failure < 15 mL/min/1.73m2 *Relative to young adult level Estimated glomerular filtration rate is determined by the 2020 CKD-EPI equation recommended by the National Kidney Foundation (A Unifying Approach to GFR Estimation: Recommendations of the NKF-ASK Task Force on Reassessing the Inclusion of Race in Diagnosing Kidney Disease, JASN 2020). The CKD-EPI equation should not be used for patients with unstable renal function and has not been validated in children and those over 70. Current interpretive data was last reviewed 2021. Testing performed by: [facility], [address] [place] [address]., [address] Blood 12/07/2024 3:58 PM CDT 12/07/2024 9:35 PM CDT Cristian Contreras SPECIAL EDUCATION ASSOCIATE LAB BLOOD ORDERABLES Final Result [facility] ([facility]) 1 [facility] Department [place] [address] * Differential, auto (12/07/2024 3:58 PM CDT) Neutrophil abs 5.15 1.50 - 6.50 K/cumm Comment:Testing performed by : [address], [address] Imm gran abs 0.03 0.00 - 0.10 K/cumm [facility] ([facility]) Comment:Testing performed by : [address], [address] Lymphocyte abs 1.38 0.80 - 3.30 K/cumm [facility] ([facility]) Comment:Testing performed by : [address] [address] Monocyte abs 0.59 0.20 - 0.80 K/cumm [facility] ([facility]) Comment:Testing performed by : [facility], [address] [place] [address]., [address] Eosinophil abs 0.12 0.00 - 0.50 K/cumm [facility] ([facility]) Comment:Testing performed by : [address], [address] Basophil abs 0.07 0.00 - 0.10 K/cumm [facility] ([facility]) Comment:Testing performed by : [address], [address] Neutrophil pct 70.2 % [facility] ([facility]) Comment: Interpretive Data Percent cell count reference ranges are not reported, since discordance with absolute values may lead to misinterpretation of CBC data. Current Interpretive Data was last revised on 2017. Testing performed by: [facility], [address] [place] [address]., [address] Imm gran pct 0.4 % [facility] ([facility] Comment: Interpretive Data Percent cell count reference ranges are not reported, since discordance with absolute values may lead to misinterpretation of CBC data. Current Interpretive Data was last revised on 2017. Testing performed by: [facility], [address] [place] [address], [address] Lymphocyte pct 18.8 % [facility] ([facility] Comment: Interpretive Data Percent cell count reference ranges are not reported, since discordance with absolute values may lead to misinterpretation of CBC data. Current Interpretive Data was last revised on 2017. Testing performed by: [address], [address] Monocyte pct 8.0 % [facility] ([facility] Comment: Interpretive Data Percent cell count reference ranges are not reported, since discordance with absolute values may lead to misinterpretation of CBC data. Current Interpretive Data was last revised on 2017. Testing performed by: [address], [address] Eosinophil pct 1.6 % [facility] ([facility] Comment: Interpretive Data Percent cell count reference ranges are not reported, since discordance with absolute values may lead to misinterpretation of CBC data. Current Interpretive Data was last revised on 2017. Testing performed by: [address], [address] Basophil pct 1.0 % [facility] ([facility] Comment: Interpretive Data Percent cell count reference ranges are not reported, since discordance with absolute values may lead to misinterpretation of CBC data. Current Interpretive Data was last revised on 2017. Testing performed by: [address], [address] Blood 12/07/2024 3:58 PM CDT 12/07/2024 9:26 PM CDT Cristian Contreras NP LAB BLOOD ORDERABLES Final Result Performing Organization Address City/[facility]/ZIP Co de Phone Number [facility] ([facility]) 1 [facility] [place] [address] * Iron profile w/ IBC (12/07/2024 3:58 PM CDT) Pathologist [facility] [place] Iron 82 35 - 145 mcg/dl Comment:Testing performed by : [facility], [address] [place] [address]., [address] TIBC 286 250 - 400 mcg/dL [facility] ([facility]) Comment:Testing performed by : [facility], [address] [place] [address], [address] Transferrin saturation 29 20 - 50 % [facility] ([facility]) Comment:Testing performed by : [facility], [address] [place] [address], [address] Blood 12/07/2024 3:58 PM CDT 12/07/2024 9:26 PM CDT Cristian Contreras LAB BLOOD ORDERABLES Final Result Performing Organization Address City/[facility] Co de Phone Number [facility] ([facility]) 1 [facility] Department [place] [address] * (ABNORMAL) CBC with auto differential (12/07/2024 3:58 PM CDT) [facility] WBC 7.34 3.80 - 9.90 K/cumm Comment:Testing performed by : [facility], [address] [place] [address]., [address] Hgb 11.5(L) 11.9 - 15.5 g/dL [facility] ([facility]) Comment:Testing performed by : [address] [address] Hct 37.2 35.6 - 45.5 % [facility] ([facility]) Comment:Testing performed by : [address] [address] Plt 174 150 - 400 K/cumm [facility] ([facility]) Comment:Testing performed by : [facility], [address], [place]., [address] MPV 11.7 9.1 - 12.3 fL [facility] ([facility]) Comment:Testing performed by : [facility], [address] [place] [address], [address] RBC 3.99 3.90 - 5.20 M/cumm [facility] ([facility]) Comment:Testing performed by : [facility], [address] [place] [address], [address] MCV 93.2 81.3 - 96.4 fL [facility] ([facility] Comment:Testing performed by : [facility], [address] [place] [address], [address] MCH 28.8 27.1 - 33.3 pg [facility] ([facility]) Comment:Testing performed by : [address], [address] MCHC 30.9(L) 32.3 - 35.7 g/dL [facility] ([facility] Comment:Testing performed by : [address], [address] RDW CV 14.0 11.1 - 14.9 % [facility] ([facility] Comment:Testing performed by : [address], [address] RDW SD 47.2 35.7 - 48.1 fL [facility] ([facility] Comment:Testing performed by : [address], [address] NRBC abs 0.00 0.00 - 0.01 K/cumm [facility] ([facility]) Comment:Testing performed by : [address], [address] Blood 12/07/2024 3:58 PM CDT 12/07/2024 9:26 PM CDT Cristian Contreras NP LAB BLOOD ORDERABLES Final Result [facility] ([facility] 1 [facility] Department [place] [address] * Ferritin (12/07/2024 3:58 PM CDT) [facility] Ferritin 146 13 - 150 ng/mL Comment:Testing performed by : [facility], [address] [place] [address]., [address] Blood 12/07/2024 3:58 PM CDT 12/07/2024 9:26 PM CDT Cristian ServinZachary Contreras SPECIAL EDUCATION ASSOCIATE LAB BLOOD ORDERABLES Final Result [facility] ([facility]) 1 [facility] Department [place] [address] * (ABNORMAL) Lipid panel (12/07/2024 3:58 PM CDT) Cholesterol 191 30 - 199 mg/dL Comment: Interpretive Data Ages < or = 19 years Acceptable: <170 mg/dL Borderline high: 170-199 mg/dL High: >or= 200 mg/dL Ages > or = 20 years Desirable: <200 mg/dL Borderline high: 200-239 mg/dL High: >or= 240 mg/dL Literature References: 1. Expert Panel on Integrated Guidelines for Cardiovascular Health and Risk Reduction in Children and Adolescents. Pediatrics 2011;128:S213 2. NCEP Expert Panel. Circulation 2004;110:227 Current Interpretive Data was last revised on 2017. Testing performed by: [facility], [address] [place] [address]., [address] Triglycerides 268(H) <=149 mg/dL [facility] ([facility]) Comment: Interpretive Data Ages < or = 9 years Acceptable: <75 mg/dL Borderline high: 75-99 mg/dL High: >or= 100 mg/dL Ages 10 to 20 years Acceptable: <90 mg/dL Borderline high: 90-129 mg/dL High: >or= 130 mg/dL Ages > or = 20 years Desirable: <150 mg/dL Borderline high: 150-199 mg/dL High: 200-499 mg/dL Very high: >or= 499 mg/dL Literature References: 1. Expert Panel on Integrated Guidelines for Cardiovascular Health and Risk Reduction in Children and Adolescents. Pediatrics 2011;128:S213 2. NCEP Expert Panel. Circulation 2004;110:227 Current Interpretive Data was last revised on 2017. Testing performed by: [facility], [address] [place] [address]., [address] HDL 53 >=40 mg/dL [facility] ([facility]) Comment: Interpretive Data Ages < or = 19 years Acceptable: >45 mg/dL Borderline low: 40-45 mg/dL Low: <40 mg/dL Ages > or = 20 years Desirable: >or= 60 mg/dL Low: <40 mg/dL Literature References: 1. Expert Panel on Integrated Guidelines for Cardiovascular Health and Risk Reduction in Children and Adolescents. Pediatrics 2011;128:S213 2. NCEP Expert Panel. Circulation 2004;110:227 Current Interpretive Data was last revised on 2017. Testing performed by: [facility], [address] [place] [address]., [address] LDL, calculated 93 <=129 mg/dL [facility] ([facility]) Comment: Interpretive Data Ages < or = 19 years Acceptable: <110 mg/dL Borderline high: 110-129 mg/dL High: >or= 130 mg/dL Ages > or = 20 years Optimal: <100 mg/dL Near optimal: 100-129 mg/dL Borderline high: 130-159 mg/dL High: >160 mg/dL Calculated using the Edward LDL-C estimating equation. This equation was implemented on 2023. Prior to this date LDL-C was estimated using the Friedewald equation. Literature References: 1. Expert Panel on Integrated Guidelines for Cardiovascular Health and Risk Reduction in Children and Adolescents. Pediatrics 2011;128:S213 2. NCEP Expert Panel. Circulation 2004;110:227 3. Edward Servin et al. ALCIRA Cardiol. 2019August 13;5(5):540-548. doi: 10.1001/jamacardio.2020.0013 Current Interpretive Data was last revised on 2023. Testing performed by: [facility], [address] [place] [address]., [address] Non-HDL Cholesterol 138 mg/dL [facility] ([facility]) Comment: Interpretive Data Ages < or = 19 years Acceptable: <120 mg/dL Borderline high: 120-144 mg/dL High: >145 mg/dL Ages > or = 20 years When triglycerides are >200 mg/dL, Non-HDL cholesterol is a secondary target of therapy with treatment goals that are 30 mg/dL greater than the LDL cholesterol target. Literature References: 1. Expert Panel on Integrated Guidelines for Cardiovascular Health and Risk Reduction in Children and Adolescents. Pediatrics 2011;128:S213 2. NCEP Expert Panel. Circulation 2004;110:227 Current Interpretive Data was last revised on 2017. Testing performed by: [facility], [address] [place] [address]., [address] Chol/HDL ratio 4 [facility] ([facility]) Comment:Testing performed by : [address], [address] Blood 12/07/2024 3:58 PM CDT 12/07/2024 9:26 PM CDT Cristian Contreras NP LAB BLOOD ORDERABLES Final Result [facility] ([facility]) 1 [facility] Department [place] [address] * (ABNORMAL) Comprehensive metabolic panel (12/07/2024 3:58 PM CDT) Sodium 138 135 - 145 mmol/L Comment:Testing performed by : [address], [address] Potassium, pl 4.6 3.3 - 4.9 mmol/L [facility] ([facility] Comment:Testing performed by : [address] [address] Chloride 99 97 - 110 mmol/L [facility] ([facility]) Comment:Testing performed by : [address] [address] CO2 28 22 - 32 mmol/L [facility] ([facility]) Comment:Testing performed by : [address], [address] Anion gap 11 2 - 15 mmol/L [facility] ([facility]) Comment:Testing performed by : [address] [address] BUN 27(H) 6 - 25 mg/dL [facility] ([facility] Comment:Testing performed by : [address], [address] Creatinine 2.32(H) 0.60 - 1.10 mg/dL [facility] ([facility]) Comment:Testing performed by : [address] [address] Glucose 137 70 - 199 mg/dL [facility] ([facility]) Comment: Interpretive Data Fasting glucose >/= 126 mg/dl is diagnostic for diabetes. Fasting is defined as no caloric intake for at least 8 hours. Fasting glucose between 100 mg/dl to 125 mg/dl is diagnostic of prediabetes. In a patient with classic symptoms of hyperglycemia or hyperglycemic crisis, a random glucose >/= 200 mg/dl is diagnostic for diabetes. In the absence of unequivocal hyperglycemia, results should be confirmed by repeat testing. The classification and Diagnosis of Diabetes Diabetes Care 2021; 46: S19-S40. Current interpretive data was last revised 2022. Testing performed by: [address], [address] Calcium 9.4 8.5 - 10.3 mg/dL [facility] ([facility] Comment:Testing performed by : [address] [address] Bilirubin, total 0.3 0.1 - 1.2 mg/dL [facility] ([facility]) Comment:Testing performed by : [address] [address] [address] Protein, pl 7.0 6.5 - 8.5 g/dL [facility] Comment:Testing performed by : [address], [address] Albumin 4.2 3.5 - 5.0 g/dL [facility] Comment:Testing performed by : [address] [address] Alk phos 110 40 - 130 Units/L [facility] ([place] Comment:Testing performed by : [address], [address] ALT 12 7 - 45 Units/L [facility] ([place] Comment:Testing performed by : [address], [address] AST 25 10 - 45 Units/L [facility] ([place] Comment:Testing performed by : [address], [address] Blood 12/07/2024 3:58 PM CDT 12/07/2024 9:26 PM CDT Cristian Contreras SPECIAL EDUCATION ASSOCIATE LAB BLOOD ORDERABLES Final Result Performing Organization Address [facility]/ZIP Co de Phone Number AJAY DORANTES ([place]) [address] [place] [address] * (ABNORMAL) Hemoglobin A1c (09/03/2024 2:34 PM CDT) Hgb A1C 7.7(H) 4.0 - 5.6 % Comment:Testing performed by : [facility], [address] [place] [address]., [address] Estimated Average Glucose 174 mg/dL [facility] ([place]) Comment: The ADA recommends reporting an estimated Average Glucose (eAG) with all Hemoglobin A1c results using the equation derived from a study of 507 normal and diabetic adults. Minority populations were underrepresented and children were not included. (Diabetes Care 31:3941-0023, 2008). The eAG is not equivalent to a fasting glucose. Testing performed by: [facility], [address] [place] [address]., [address] Blood 09/03/2024 2:34 PM CDT 09/03/2024 7:25 PM CDT Leticia Thorpe SPECIAL EDUCATION ASSOCIATE LAB BLOOD ORDERABLES Final Re sult Performing Organization Address [facility]/ZIP Co de Phone Number [facility] ([place]) [address] [place] [address] * Albumin Creatinine Ratio, Urine (06/11/2024 10:23 AM MANAGEMENT LIAISON) Albumin Ur 18.0 mg/L Comment: Interpretive Data No reference range established. Current interpretive data was last revised 2018. Creatinine Ur 164.8 mg/dL [facility] Comment: Interpretive Data No reference range established. Current interpretive data was last revised 2018. Albumin Creatinine Ratio, Ur 11 1 - 29 mg/g [facility] Urine 06/11/2024 10:2 3 AM MANAGEMENT LIAISON 06/11/2024 6:34 PM MANAGEMENT LIAISON us Leticia Thorpe NP LAB URINE ORDERABLES Final Re sult AJAY FAUSTIN [address] [address] Department [place] [address] * Dexa Axial Skeleton Bone Density 1 or 2 Site (06/04/2023 1:26 PM MANAGEMENT LIAISON) Anatomical Region Laterality Modality Body N/A Other 06/05/2023 8:47 AM MANAGEMENT LIAISON Narrative 06/05/2023 6:22 PM MANAGEMENT LIAISON EXAM DESCRIPTION: DEXA AXIAL SKELETON BONE DENSITY 1 OR MORE SITES REASON FOR STUDY: 77 y/o year old F with given history of: postmenopausal Osteoporosis screening 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 FINDINGS: AP LUMBAR SPINE L1-L4: Total BMD is 1.111 g/cm2 T-score is 0.6 LEFT HIP: Total BMD is 0.836 g/cm2 T-score is -0.9 Femoral neck BMD is 0.645 g/cm2 T-score is -1.8 FRAX: 10 year risk for a major osteoporotic fracture is 11 %, 10 year risk for a hip fracture is 2.6 % IMPRESSION: Low Bone Mass. REFERENCE: Bone mineral density: Normal (T-score above or = -1.0) Low bone mass (T-score between -1.0 and -2.5) replaces the previously used term osteopenia Osteoporosis (T-score = or below -2.5) Please see below follow up recommendations. Medical evaluation for secondary causes of low bone mineral density may be appropriate. FRAX is a World Health Organization validated fracture risk assessment tool that calculates a person's 10 year probability of a major osteoporosis related fracture and hip fracture. According to the National Osteoporosis Foundation guidelines, postmenopausal women and men age 50 or older with low bone mass and a 10 year probability of a major osteoporosis related fracture = or greater than 20% or a 10 year probability of a hip fracture = or greater than 3% should be considered for pharmacological treatment for the prevention of osteoporosis. For further information, including treatment recommendations, please refer to the 2019 ISCD Official Positions (http://www.iscd.org) and the NOF's Clinician's Guide to Prevention and Treatment of Osteoporosis (http://www.nof.org/professionals/clinical-guidelines) THIS IS AN ELECTRONICALLY VERIFIED FINAL REPORT 06/05/2023 6:22 PM - Electronically signed by Winston Newsome M.D. 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 FINDINGS: AP LUMBAR SPINE L1-L4: Total BMD is 1.111 g/cm2 T-score is 0.6 LEFT HIP: Total BMD is 0.836 g/cm2 T-score is -0.9 Femoral neck BMD is 0.645 g/cm2 T-score is -1.8 FRAX: 10 year risk for a major osteoporotic fracture is 11 %, 10 year risk for ahip fracture is 2.6 % IMPRESSION: Low Bone Mass. REFERENCE: Bone mineral density: Normal (T-score above or = -1.0) Low bone mass (T-score between -1.0 and -2.5) replaces thepreviously used term osteopenia Osteoporosis (T-score = or below -2.5) Please see below follow up recommendations. Medical evaluation forsecondary causes of low bone mineral density may be appropriate. FRAX is a World Health Organization validated fracture risk assessmenttool that calculates a person's 10 year probability of a major osteoporosisrelated fracture and hip fracture. According to the National OsteoporosisFoundation guidelines, postmenopausal women and men age 50 or older with low bonemass and a 10 year probability of a major osteoporosis related fracture = or greater than 20% or a 10 year probability of a hip fracture = or greaterthan 3% should be considered for pharmacological treatment for the preventionof osteoporosis. For further information, including treatment recommendations, please referto the 2019 ISCD Official Positions (http://www.iscd.org) and the NOF's Clinician's Guide to Prevention and Treatment of Osteoporosis (http://www.nof.org/professionals/clinical-guidelines) THIS IS AN ELECTRONICALLY VERIFIED FINAL REPORT 06/05/2023 6:22 PM - Electronically signed by Winston Newsome M.D. MF: [email or web address] Report ID: [id number] Reading Location: [place] [address] Renea Gallagher SPECIAL EDUCATION ASSOCIATE IMG DXA PROCEDURES Final R esult * SCREENING MAMMOGRAM BILATERAL W KATINA (10/02/2021 3:50 PM CDT) Anatomical Region Laterality Modality Breast Bilateral Mammography 10/02/2021 4:29 PM CDT Impressions 10/02/2021 4:29 PM CDT There is no mammographic evidence of malignancy. A 1 year screening mammogram is recommended. BI-RADS: 1 - Negative. The patient has been or will be contacted. The patient will be entered into a reminder system with a target due date of 1 year for her next mammogram. Electronically signed by: John Alaniz M.D. Narrative 10/02/2021 4:29 PM CDT EXAMINATION: SCREENING MAMMOGRAM BILATERAL W KATINA ORDERING HEALTHCARE PROVIDER: CRISTIAN CONTRERAS HISTORY: Routine screening mammography. COMPARISON: 01/20/2019, 10/29/2017, 05/10/2017, 08/28/2016, 08/03/2015 TECHNIQUE: CC and MLO views of the bilateral breasts were obtained with digital technique using breast tomosynthesis with C view. Computer aided detection was utilized. FINDINGS: DENSITY: There are scattered fibroglandular elements in the bilateral breasts. BREASTS: There is a pacemaker battery pack overlying the superior left breast and left axilla which limits evaluation. There are no suspicious masses, suspicious calcifications, or other suspicious findings in either breast. There has been no suspicious interval change. Cristian Contreras SPECIAL EDUCATION ASSOCIATE IMG MAMMO PROCEDURES Final Result * DIABETES EYE EXAM (02/14/2021) SCRIBED DIABETIC DILATED EYE EXAM Normal Historical Provider HEALTH MAINTENANCE Final Result * COLONOSCOPY (08/31/2020 1:19 PM CDT) Anatomical Region Laterality Modality Other Narrative Procedure Note Yenifer Soria MD - 08/31/2020 1:19 PM CDT [facility] Patient Name: Yoselin Thakur Procedure Date: 08/31/2020 1:19 PM Date of : 1945 Admit Type: Outpatient Age: 75 Gender: Female Attending MD: Yenifer Soria M.D. Room: [facility] ENDOSCOPY ROOM 1 Note Status: Finalized Patient Profile: This is a 75 year old female. History of benign polyps. Noted recently positive stool at the [facility]. No family history of colon cancer. Procedure: Colonoscopy Indications: High risk colon cancer surveillance: Personalhistory of colonic polyps, Last colonoscopy: August 2015 Referring MD: Maurilio Torrez M.D. Providers: Yenifer Soria M.D. Impression: - One 7 mm polyp in the proximal descending colon, removed with a jumbo cold forceps. Resected and retrieved. - Internal and external hemorrhoids. Recommendation: - Await pathology results. - Repeat colonoscopy in 5 years for screeningpurposes. - Continue present medications. Medicines: Monitored Anesthesia Care Complications: No immediate complications. Estimated Blood Loss: Estimated blood loss: none. Procedure: Pre-Anesthesia Assessment: - Prior to the procedure, a History and Physicalwas performed, and patient medications and allergieswere reviewed. The patient's tolerance of previous anesthesia was also reviewed. The risks andbenefits of the procedure and the sedation options and risks were discussed with the patient. All questions were answered, and informed consent was obtained. Prior Anticoagulants: The patient has taken no previous anticoagulant or antiplatelet agents. ASA Grade Assessment: II - A patient with mild systemicdisease. After reviewing the risks and benefits, the patient was deemed in satisfactory condition to undergo the procedure. The benefits, risks and alternatives of theprocedure and sedation were discussed and informed consentwas obtained. All questions were answered. Please referto the signed informed consent document in the medical record. The bowel preparation used was Miralax via split dose instruction. The bowel preparation usedwas bisacodyl tablets via split dose instruction. The scope was passed under direct vision. The Pediatric Colonoscope PCF-[id number] was introducedthrough the anus and advanced to the the cecum, identifiedby appendiceal orifice and ileocecal valve. Thequality of the bowel preparation was good. Bowel prep was administered using a split dose. Findings: Medium-sized external hemorrhoids were found on perianal exam. The cecum appeared normal. The ascending colon appeared normal. The transverse colon appearednormal A 7 mm polyp was found in the proximal descending colon. The polypwas semi-sessile. The polyp was removed with a jumbo cold forceps.Resection and retrieval were complete. The sigmoid colon was unremarkable Internal hemorrhoids were found during retroflexion. The hemorrhoids were medium-sized. Electronically signed by Yenifer Soria M.D. Yenifer Soria M.D. 08/31/2020 3:00:59 PM Number of Addenda: 0 Note Initiated On: 08/31/2020 1:19 PM Procedure Code(s): --- Professional --- 91760, Colonoscopy, flexible; with biopsy, single or multiple Diagnosis Code(s): --- Professional --- Z86.010, Personal history of colonic polyps K64.8, Other hemorrhoids K63.5, Polyp of colon K57.30, Diverticulosis of large intestine without perforation orabscess without bleeding CPT copyright 2019 [place] [employer]. All rights reserved. The codes documented in this report are preliminary and upon environmental protection inspector reviewmay be revised to meet current compliance requirements. Recognized by the [place] [employer] for promoting quality in endoscopy Yenifer Soria MD ENDOSCOPY PROCEDURES Final Result from Last 3 Months or Most Recently Relevant to Health Maintenance Insurance MEDICARE ADVANTAGE Member Subscriber Plan / Payer (Ef fective 2022-Present) Name:Yoselin Thakur L Relation to Subscriber:Self Name:Yoselin Thakur L Payer ID:[id number] (NAIC) Type:[facility] MED[facility] Address: [place] [id number] Member Subscriber Plan / Payer (Ef fective 2022-Present) Name:Yoselin Thakur L Relation to Subscriber:Self Name:Yoselin Thakur L Payer ID:[id number] (NAIC) Type:[facility] MEDIC[facility] Address: [place] [id number] Advance Directives For more information, please contact: [phone] Documents on File Type Date Recorded 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 ADVANCE DIRECTIVE 10/17/2016 Advance Di rective Checklist * Full Code (Latest Code Status on File) Date Activated Date Inactivated Comments 12/11/2023 9:27 AM 12/14/2023 6:55 PM * Full Code Date Activated Date Inactivated Comments 12/11/2021 2:29 PM 12/12/2021 11:06 PM * Full Code Date Activated Date Inactivated Comments 12/11/2021 4:19 AM 12/11/2021 2:29 PM * Full Code Date Activated Date Inactivated Comments 08/31/2020 1:06 PM 08/31/2020 9:51 PM * Full Code Date Activated Date Inactivated Comments 03/20/2020 9:10 PM 03/31/2020 5:39 PM Care Teams Retail Merchandiser Technician Relationship Specialty Start Date End Date Maurilio Torrez MD [address] [place] [address] PCP - General 07/13/16 Renny Gabriel DO [address] [facility] [address] [place] [address] Consulting Physician Cardiovascular Disease 02/22/19 Leticia Thorpe NP [address] [place] [address] Nurse Practitioner Family Medicine 09/04/24 Richa Desir NP [address] [facility] [address] [place] [address] Nurse Practitioner Hospice and Palliative Medicine 09/08/24 Nunu Langston NP [address] [facility] [address] [place] [address] Nurse Practitioner Hospice and Palliative Medicine 09/08/24
== END 2025-02-10 13:21 | disposition home or self-care (01) ==
LOC: ANHPFT 13:23
PROVIDERS: PCP Family Medicine; Visit Provider Nurse Practitioner Family
DX: I27.20 Pulmonary hypertension, unspecified (principal); J98.4 Other disorders of lung
CPT/HCPCS: 94618